=== PATIENT | male | born 1985 | race African-American/Black ===

== ENCOUNTER 2022-02-13 11:17 | Emergency (ER) | payer OTHER ==
--- OUTSIDE RECORDS SUMMARY | 2022-02-13 11:24 | XMS REPORT | Continuity of Care Document ---
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 times Branch daily. HYDROcodone 2018-0 Yes [id number] 1{tbl} Take 1 Univers -acetaminop 8-09 tablet by ity of hen (Briefcase) 00:00: mouth 2 [place] 5-325 mg 00 (two) Medical tablet times Branch daily. HYDROcodone 2018-0 Yes [id number] 1{tbl} Take 1 Univers -acetaminop 8-09 tablet by ity of hen (Briefcase) 00:00: mouth 2 [place] 5-325 mg 00 (two) Medical tablet times Branch daily. HYDROcodone 2018-0 Yes [id number] 1{tbl} Take 1 Univers -acetaminop 8-09 tablet by ity of hen (Briefcase) 00:00: mouth 2 [place] 5-325 mg 00 (two) Medical tablet times Branch daily. HYDROcodone 2018-0 Yes [id number] 1{tbl} Take 1 Univers -acetaminop 8-09 tablet by ity of hen (Briefcase) 00:00: mouth 2 [place] 5-325 mg 00 (two) Medical tablet times Branch daily. HYDROcodone 2020- No [id number] 1{tbl} Take 1 Univers -acetaminop 02-19 tablet by it y of hen ([place]) 00:00: 00:00 mouth 2 [place] 5-325 mg 00 :00 (two) Medical tablet times Branch daily. naproxen Yes [id number] 375mg Take 1 Un nannette 375 mg 3-01 tablet by ity of tablet 00:00: mouth 2 (two) Medical times Branch daily with meals. naproxen Yes [id number] 375mg Take 1 Un [place] 375 mg 3-01 tablet by ity of tablet 00:00: mouth 2 (two) Medical times Branch daily with meals. naproxen Yes [id number] 375mg Take 1 Un [place] 375 mg 3-01 tablet by ity of tablet 00:00: mouth 2 (two) Medical times Branch daily with meals. naproxen Yes [id number] 375mg Take 1 Un [place] 375 mg 3-01 tablet by ity of tablet 00:00: mouth (two) Medical times Branch daily with meals. naproxen Yes [id number] 375mg Take 1 Un [place] 375 mg 3-01 tablet by ity of tablet 00:00: mouth (two) Medical times Branch daily with meals. naproxen Yes [id number] 375mg Take 1 Un [place] 375 mg 3-01 tablet by ity of tablet 00:00: mouth 2 (two) Medical times Branch daily with meals. naproxen Yes [id number] 375mg Take 1 Un [place] 375 mg 3-01 tablet by ity of tablet 00:00: mouth 2 (two) Medical times Branch daily with meals. naproxen Yes [id number] 375mg Take 1 Un [place] 375 mg 3-01 tablet by ity of tablet 00:00: mouth 2 (two) Medical times Branch daily with meals. naproxen Yes [id number] 375mg Take 1 Un [place] 375 mg 3-01 tablet by ity of tablet 00:00: mouth 2 (two) Medical times Branch daily with meals. naproxen Yes [id number] 375mg Take 1 Univers 375 mg 3- tablet by ity of tablet 00:00: mouth 2 [place] 00 (two) Medical times Branch daily with meals. naproxen 1- No [id number] 375mg Take 1 Univers 375 mg 304-11 tablet by ity of tablet 00:00: 00:00 mouth 2 [place] 00 :00 (two) Medical times Branch daily with meals. Immunizations Ordered Filled Immunization Date Status Comments [facility] e Immunization Name Name Influenza, 2017-04-29 [facility] injectable, 00:00:00 quadrivalent Influenza, 2017-04-29 Completed [facility] Unspecified 00:00:00 Influenza, 2017-04-29 Completed [facility] injectable, 00:00:00 quadrivalent Influenza, 2017-04-29 Completed [facility] Unspecified 00:00:00 Influenza, 2017-04-29 Completed [facility] injectable, 00:00:00 quadrivalent Influenza, 2017-04-29 Completed [facility] Unspecified 00:00:00 Influenza, 2017-04-29 Completed [facility] injectable, 00:00:00 quadrivalent Influenza, 2017-04-29 Completed [facility] Unspecified 00:00:00 Influenza, 2017-04-29 Completed [facility] injectable, 00:00:00 quadrivalent Influenza, 2017-04-29 Completed [facility] Unspecified 00:00:00 Influenza, 2017-04-29 Completed [facility] injectable, 00:00:00 quadrivalent Influenza, 2017-04-29 Completed [facility] Unspecified 00:00:00 Influenza, 2017-04-29 Completed [facility] injectable, 00:00:00 quadrivalent Influenza, 2017-04-29 Completed [facility] Unspecified 00:00:00 Influenza, 2017-04-29 Completed [facility] injectable, 00:00:00 quadrivalent Influenza, 2017-04-29 Completed [facility] Unspecified 00:00:00 Influenza, 2017-04-29 Completed [facility] injectable, 00:00:00 quadrivalent Influenza, 2017-04-29 Completed [facility] Unspecified 00:00:00 Influenza, 2017-04-29 Completed [facility] injectable, 00:00:00 quadrivalent Influenza, 2017-04-29 Completed [facility] Unspecified 00:00:00 Influenza Virus 2017-04-29 Completed Universit y of Vaccine 00:00:00 [facility] Influenza Virus 2017-04-29 Completed Universit y of Vaccine 00:00:00 [facility] Influenza Virus 2017-04-29 Completed Universit y of Vaccine 00:00:00 [facility] Influenza Virus 2017-04-29 Completed Universit y of Vaccine 00:00:00 [facility] Influenza Virus 2017-04-29 Completed Universit y of Vaccine 00:00:00 [facility] Influenza Virus 2017-04-29 Completed Universit y of Vaccine 00:00:00 [facility] Influenza Virus 2017-04-29 Completed Universit y of Vaccine 00:00:00 [facility] Influenza Virus 2017-04-29 Completed Universit y of Vaccine 00:00:00 [facility] Influenza Virus 2017-04-29 Completed Universit y of Vaccine 00:00:00 [facility] Influenza Virus 2017-04-29 Completed Universit y of Vaccine 00:00:00 [facility] Influenza Virus 2017-04-29 Completed Universit y of Vaccine 00:00:00 [facility] Influenza Virus 2017-04-29 Completed Universit y of Vaccine 00:00:00 [facility] Influenza Virus 2017-04-29 Completed Universit y of Vaccine 00:00:00 [facility] Influenza Virus 2017-04-29 Completed Universit y of Vaccine 00:00:00 [facility] Influenza Virus 2017-04-29 Completed Universit y of Vaccine 00:00:00 [facility] Vital Signs Vital Name Observation Time Observation Value Comments Source Systolic blood 2021-07-25 10:41:00 138 mm[Hg] Univer sity of pressure [facility] Diastolic blood 2021-07-25 10:41:00 91 mm[Hg] Unive rsity of pressure [facility] Heart rate 2021-07-25 10:41:00 91 /min [facility] Respiratory rate 2021-07-25 10:41:00 18 /min [facility] [place] [facility] Oxygen saturation in 2021-07-25 10:41:00 100 /min [facility] Arterial blood by [facility] Pulse oximetry Branch Body temperature 2021-07-25 08:37:00 36.78 Cyndi [facility] Body height 2021-07-25 08:37:00 177.8 cm [facility] Body weight 2021-07-25 08:37:00 61.236 kg [facility] BMI 2021-07-25 08:37:00 19.37 kg/m2 [facility] [place] [facility] Systolic blood 2021-04-23 10:30:00 151 mm[Hg] [facility] [place] [facility] Diastolic blood 2021-04-23 10:30:00 108 mm[Hg] Unive rsity [facility] Heart rate 2021-04-23 10:30:00 91 /min [facility] [place] [facility] Respiratory rate 2021-04-23 10:30:00 18 /min [facility] ers[facility] [place] [facility] Oxygen saturation in 2021-04-23 10:30:00 98 /min [facility] of Arterial blood by [place] [facility] Pulse oximetry Branch Body temperature 2021-04-23 08:58:00 36.78 Cyndi [facility] [place] [facility] Body height 2021-04-23 08:58:00 177.8 cm [facility] [place] [facility] Body weight 2021-04-23 08:58:00 56.7 kg [facility] [place] [facility] BMI 2021-04-23 08:58:00 17.94 kg/m2 [facility] [place] [facility] Systolic blood 2021-04-18 07:06:00 132 mm[Hg] [facility] Diastolic blood 2021-04-18 07:06:00 97 mm[Hg] Unive rsity of [facility] Heart rate 2021-04-18 07:06:00 91 /min [facility] [place] [facility] Respiratory rate 2021-04-18 07:06:00 20 /min [facility] [place] [facility] Oxygen saturation in 2021-04-18 07:06:00 99 /min University of Arterial blood by [employer] lelia Pulse oximetry Branch Body temperature 2021-04-18 04:40:00 36.72 Cyndi [facility] [place] [facility] Body weight 2021-04-18 04:40:00 56.7 kg [facility] [place] [facility] BMI 2021-04-18 04:40:00 17.94 kg/m2 [facility] [place] [facility] Systolic blood 2021-04-12 04:16:00 129 mm[Hg] [facility] Diastolic blood 2021-04-12 04:16:00 89 mm[Hg] Unive rsity of [facility] Heart rate 2021-04-12 04:16:00 98 /min [facility] [place] [facility] Body temperature 2021-04-12 04:16:00 36.61 Cyndi [facility] [place] [facility] Respiratory rate 2021-04-12 04:16:00 18 /min [facility] [place] [facility] Oxygen saturation in 2021-04-12 04:16:00 100 /min [facility] of Arterial blood by [place] [facility] Pulse oximetry Branch Body height 2021-04-12 01:11:00 177.8 cm [facility] [place] [facility] Body weight 2021-04-12 01:11:00 56.7 kg [facility] [place] [facility] BMI 2021-04-12 01:11:00 17.94 kg/m2 [facility] [place] [facility] Systolic blood 2021-04-11 23:34:00 139 mm[Hg] [facility] Diastolic blood 2021-04-11 23:34:00 90 mm[Hg] Unive rsity [facility] Heart rate 2021-04-11 23:34:00 114 /min [facility] [place] [facility] Body temperature 2021-04-11 23:34:00 37.22 Cyndi [facility] [place] [facility] Respiratory rate 2021-04-11 23:34:00 16 /min [facility] [place] [facility] Body weight 2021-04-11 23:34:00 56.79 kg [facility] [place] [facility] BMI 2021-04-11 23:34:00 17.96 kg/m2 [facility] [place] [facility] Oxygen saturation in 2021-04-11 23:34:00 100 /min University of Arterial blood by [facility] lelia Pulse oximetry Branch Systolic blood 2021-03-29 20:00:00 120 mm[Hg] [facility] Diastolic blood 2021-03-29 20:00:00 79 mm[Hg] [facility] Heart rate 2021-03-29 20:00:00 101 /[facility] Body height 2021-03-29 20:00:00 177.8 cm [facility] Systolic blood 2021-03-29 20:00:00 120 mm[Hg] [facility] Diastolic blood 2021-03-29 20:00:00 79 mm[Hg] [facility] Heart rate 2021-03-29 20:00:00 101 /min [facility] height 2021-03-29 20:00:00 177.8 cm [facility] Systolic blood 2021-02-26 14:09:00 138 mm[Hg] [facility] Diastolic blood 2021-02-26 14:09:00 85 mm[Hg] [facility] Heart rate 2021-02-26 14:09:00 94 /min [facility] Body temperature 2021-02-26 14:09:00 37.22 Cyndi [facility] Body height 2021-02-26 14:09:00 177.8 [facility] Body weight 2021-02-26 14:09:00 62[facility]596 [facility] BMI 2021-02-26 14:09:00 19.80 kg[facility]m2 [facility] Systolic blood 2021-01-23 13:17:00 123 mm[Hg] [facility] Diastolic blood 2021-01-23 13:17:00 70 mm[Hg] [facility] Heart rate 2021-01-23 13:17:00 73 /min [facility] Body weight 2021-01-23 13:17:00 65.772 [facility] BMI 2021-01-23 13:17:00 20.81 kg[facility]m2 [facility] Systolic blood 2020-12-25 14:17:00 130 mm[Hg] [facility] Diastolic blood 2020-12-25 14:17:00 67 mm[Hg] [facility] Heart rate 2020-12-25 14:17:00 73 /min [facility] Body temperature 2020-12-25 14:17:00 36.72 Cyndi [facility] Body weight 2020-12-25 14:17:00 63.504 [facility] BMI 2020-12-25 14:17:00 20.09 kg[facility]m2 [facility] Systolic blood 2020-11-21 14:34:00 112 mm[Hg] [facility] Diastolic blood 2020-11-21 14:34:00 76 mm[Hg] [facility] Heart rate 2020-11-21 14:34:00 71 /min [facility] Body temperature 2020-11-21 14:34:00 37.17 Cyndi [facility] Body height 2020-11-21 14:34:00 177.8 cm [facility] Body weight 2020-11-21 14:34:00 63.957 [facility] BMI 2020-11-21 14:34:00 20.23 kg[facility]m2 [facility] Systolic blood 2020-07-24 15:05:00 130 mm[Hg] [facility] Diastolic blood 2020-07-24 15:05:00 68 mm[Hg] [facility] [place] [facility] [place] Heart rate 2020-07-24 15:04:00 71 /min [facility] [place] [facility] Respiratory rate 2020-07-24 15:04:00 16 /min [facility] [place] [facility] Body height 2020-07-24 15:04:00 177.8 cm [facility] [place] [facility] Body weight 2020-07-24 15:04:00 66.86 kg [facility] [place] [facility] BMI 2020-07-24 15:04:00 21.15 kg/m2 [facility] [place] [facility] Oxygen saturation in 2020-07-24 15:04:00 100 /min University of Arterial blood by [employer] Pulse oximetry Branch Systolic blood 2020-07-24 15:05:00 130 mm[Hg] [facility] Diastolic blood 2020-07-24 15:05:00 68 mm[Hg] [facility] Heart rate 2020-07-24 15:04:00 71 /min [facility] [place] [facility] Respiratory rate 2020-07-24 15:04:00 16 /min [facility] [place] [facility] Body height 2020-07-24 15:04:00 177.8 cm [facility] [place] [facility] Body weight 2020-07-24 15:04:00 66.86 kg [facility] [place] [facility] BMI 2020-07-24 15:04:00 21.15 kg/m2 [facility] [place] [facility] Oxygen saturation in 2020-07-24 15:04:00 100 /min [facility]ial blood by [place] [facility] Pulse oximetry Branch Oxygen saturation by 2021-04-30 02:41:00 100 /min [facility] P[facility] Oxygen saturation by 2021-04-30 02:36:00 100 /min [facility] Pulse [facility] Procedures Procedure Date / Time Performed Performing Clinician Sourc e CT ABDOMEN PELVIS W 2021-07-25 09:31:55 Jamila [facility] CONTRAST Medical Branch URINALYSIS 2021-07-25 09:19:00 [facility] [place] [facility] (ID NOW RAPID 2021-07-25 09:15:00 [facility] LIPASE 2021-07-25 09:08:00 [facility] [place] [facility] COMP. METABOLIC PANEL 2021-07-25 09:08:00 [facility] ([id number]) Medical Branch CBC WITH DIFF 2021-07-25 09:08:00 [facility] [place] [facility] CONSENT/REFUSAL FOR 2021-07-25 08:33:52 Doctor Unassigned, No [facility] [place] DIAGNOSIS AND Name Medical Branch TREATMENT CONSENT/REFUSAL FOR 2021-04-23 08:55:28 Doctor Unassigned, No [facility] [place] DIAGNOSIS AND Name Medical [place] TREATMENT URINALYSIS 2021-04-18 06:07:00 [facility] [place] [facility] CONSENT/REFUSAL FOR 2021-04-18 04:37:28 Doctor Unassigned, No [facility] [place] DIAGNOSIS AND Name [facility] [place] TREATMENT CT ABDOMEN PELVIS WO 2021-04-12 03:25:02 Marianne Pineda [facility] CONTRAST Medical Branch US TESTICULAR TORSION 2021-04-12 02:06:29 Marianne Pineda [facility] URINALYSIS 2021-04-12 01:56:00 Marianne Pineda [facility] CONSENT/REFUSAL FOR 2021-04-12 00:39:32 Doctor Unassigned, No [facility] [place] DIAGNOSIS AND Name [facility] TREATMENT POCT URINALYSIS 2021-04-12 00:06:00 Jose Caro Univer sity [facility] [place] [facility] POCT URINE DRUG SCREEN 2021-02-26 16:21:00 Siria Gonsales [place] [facility] EXTERNAL PROVIDER 2020-07-11 06:01:00 Doctor Unassigned, No [facility] [place] RECORDS Name Medical Branch REFERRAL- 2020-06-26 06:01:00 Doctor Unassigned, No [facility] [place] REQUEST/RESPONSE Name Medical Branch REFERRAL- 2019-08-11 06:01:00 Doctor Unassigned, No [facility] [place] REQUEST/RESPONSE Name [facility] Plan of Care Planned Activity Planned Date Details Comments Source Instructions Inguinal Hernia, Adult, [facility] Patient [id number] [facility] Encounters Start End Encounter Admission Attending Care Care Encounter Source Date/Time Date/Time Type Type Clinicians Facility Department ID 2021-11-08 Outpatient [facility] [id number] [place] 15:36:38 [id number] Health 2021-05-[address] [facility] [id number] Univers 05:37:30 ity [facility] [place] [facility] 2021-05-[address] [facility] [id number] Univers 04:18:48 ity of [facility] 2021-05-[address] [facility] [id number] [facility] 02[facility] 2021-[facility]-05 Inpatient [facility] [id number] [facility] 21:06:00 [id number] [facility] 2021-05-04 Inpatient [facility] AERS [id number] [facility] 01:12:00 [id number] [facility] 2021-04-30 Inpatient [facility] [id number] [facility] 02:30:00 -[id number] [place] [facility] 2019-12-19 Inpatient [facility] [id number] [facility] 13:39:00 [id number] [facility]3] 2019-12-18 Inpatient [facility] [id number] [facility] 21:12:00 [id number] [facility]3] 2019-07-31 Inpatient [facility] [id number] [facility] 10:09:00 [id number] [facility]3] 2021-09-08 2021-09-09 Emergency MARTIN Rose [facility] [id number] [facility] 22:42:00 02:32:00 Mya Antonio [facility] 2021-09-02 2021-09-02 Emergency MAI, [facility] [id number] [place] 00:00:00 00:00:00 JOHN [address] 2021-07-25 2021-07-25 Emergency X JAMILA, [facility] [[email or web address]] ERT [id number] Univers 02:41:00 05:23:00 [facility] 2021-07-25 2021-07-25 Emergency [facility] 1.2.840.114 [id number] Univers 02:41:00 05:23:00 [facility] [id number] it [facility] [id number] [facility] [id number] [address] ([facility]) 2021-07-10 2021-07-10 Emergency EM Radwan, [facility] [id number] [facility] 03:43:00 05:45:00 Lizabeth [facility] 2021-05-30 2021-05-30 Outpatient Pacheco, [facility]O [id number] [facility] 00:37:00 00:37:00 Nuvia 11359 [facility] 2021-05-29 2021-05-29 Emergency EM Pacheco, [facility] [id number] [facility] 18:46:00 23:31:00 Nuvia 09 [facility] 2021-05-06 2021-05-06 Inpatient EM Pacheco, [facility] [id number] [facility] 03:29:00 06:00:00 Nuvia 97 [facility] 2021-05-05 2021-05-06 Emergency EM Dark, Ingrid [facility] [id number] [facility] 21:06:00 02:55:00 81 [facility] 2021-05-04 2021-05-04 Emergency EM Omikalaaku, [facility] AERS [id number] [facility] 01:12:00 01:43:00 Bozena 26 [facility] 2021-04-30 2021-04-30 Departed [facility] A[id number] [facility] 02:43:00 04:30:00 Emergency JONATHAN Patients 42 Saul [facility] 2021-04-23 2021-04-23 Emergency Blessingstella, [facility] [[email or web address]] 1.2.840.114 [id number] Univers 03:54:00 06:51:00 [facility] [id number] it y of [place] [id number] [facility] [id number] [address] ([facility]) 2021-04-22 2021-04-23 Inpatient EM Tapan [facility] [id number] [facility] 23:41:00 02:07:00 Lizabeth 53 [facility] 2021-04-17 2021-04-18 Emergency [facility] 1.2.840.114 [id number] Univers 23:41:00 02:14:00 [facility] [id number] it y of [place] [id number] [facility] [id number] [address] ([facility]) 2021-04-12 2021-04-12 Inpatient EM Jason [facility] [id number] [facility] 02:45:00 05:37:00 Scott 10 [facility] 2021-04-12 2021-04-12 Letter CHERELLE Mckeon 1.2.840.114 [id number] Univers 00:00:00 00:00:00 (Out) Jacki CHERRY [id number] i ty of HOSPITAL [id number] Steve [id number] [address] 2021-04-11 2021-04-11 Emergency [facility] [id number] Univers 20:13:00 23:19:00 Marianne [facility] [id number] i ty of [facility] 4.2.7.2.686 [facility] [id number] [address] ([facility]) 2021-04-11 2021-04-[address] [facility] [id number] Univers 18:30:00 18:30:00 [id number] ity of [facility] 2021-04-11 2021-04-11 Outpatient R UNKNOWN, [facility] [id number] Univers 18:30:00 18:30:00 ATTENDING ity of [facility] 2021-04-11 2021-04-11 Urgent Jose Caro [facility] [[email or web address]] 1.2. 840.114 [id number] Univers 18:13:52 18:28:52 Care Unknown, Attending HEALTH [id number] ity [facility] [id number] [facility] [id number] [facility] Primary [facility] Branch Specialty Care 2021-03-29 2021-03-29 Office Siria Gonsales [facility] 1.2.840.114 [id number] 14:26:30 15:12:24 Visit [place] [id number] MULTI [id number] SPECIALTY [id number] CLINIC 9 2021-03-29 2021-03-29 Office Ryanne Gonsalesa [facility] 1.2.840.114 [id number] [place] 14:26:30 15:12:24 Visit [place] [id number] H ealth MULTI 9.2.7.2.686 SPECIALTY [id number] CLINIC 9 2021-02-26 2021-02-26 Office Siria Gonsales [facility] 1.2.840.114 [id number] [place] 09:01:45 10:03:47 Visit [place] [id number] H ealth MULTI 9.2.7.2.686 SPECIALTY [id number] CLINIC 9 2021-01-31 2021-01-31 Emergency EM Lundy, [facility] [id number] [facility] 08:07:00 09:00:[address] [place] [address] 2021-01-23 2021-01-23 Office Siria Gonsales [facility] 1.2.840.114 [id number] [place] 08:09:59 08:25:49 Visit [place] [id number] H ealth MULTI [id number] SPECIALTY [id number] CLINIC 9 2020-12-25 2020-12-25 Office Ryanne Gonsalesa [facility] 1.2.840.114 [id number] [place] 08:58:15 09:55:14 Visit [id number] [facility] [id number] SPECIALTY [id number] CLINIC 9 2020-11-21 2020-11-21 Office Siria Gonsales [facility] 1.2.840.114 [id number] [place] 09:28:29 10:24:33 Visit [facility] [id number] [facility] [id number] SPECIALTY [id number] CLINIC 9 2020-11-21 2020-11-21 Telephone ParkerpaulMagdiel [facility] [place] 1.2.84 0.114 [id number] [place] 00:00:00 00:00:00 Parkerpaul[address]d[facility] [place] [id number] Health MEDICAL [id number] CENTER [id number] 2020-11-21 2020-11-21 Refill Griselda Jimenez [facility] 1.2.840.11 [id number] [place] 00:00:00 00:00:00 Griselda Jimenez [facility] [id number] Health MULTI [id number] SPECIALTY [id number] CLINIC 9 2020-07-24 2020-07-24 Office [facility] 1.2.840.114 [id number] [facility] 08:40:26 09:10:26 Visit Jonathan [facility].1.13.10 [facility] [id number] [facility] [id number] [facility] AND DIVINA [address] [place] [address] DIABETES CLINIC 2020-07-24 2020-07-24 Office [facility] 1.2.840.114 [id number] 08:40:26 09:10:26 Visit Jonathan FAYEPEC [id number] IALTY 4.2.7.2.686 [place] [id number] AND DIVINA [facility] DIABETES CLINIC 2020-07-24 2020-07-24 [facility] [id number] Univers 09:00:00 09:00:00 JONATHAN [id number] ity of [facility] 2020-07-24 2020-07-24 [facility] [id number] [facility] 09:00:00 09:00:00 JONATHAN ity of [facility] 2020-07-11 2020-07-11 Orders Doctor CHERELLE 1.2.840.114 [id number] Univers 00:00:00 00:00:00 Only Unassigned, DILIP 350.1.13.10 ity of [employer] [facility] 4.2.7.2.686 Steve as [phone] [facility] [address] [place] 2020-06-26 2020-06-26 Orders Doctor CHERELLE 1.2.840.114 [id number] Univers 00:00:00 00:00:00 Only Unassigned, DILIP 350.1.13.10 ity of [employer] [facility] 4.2.7.2.686 Steve as [phone] [address] 2019-12-22 2019-12-24 Inpatient HCAMN PAULINO [id number] [facility] 23:34:00 10:39:39 42 [facility] 2019-12-19 2019-12-19 Outpatient CRISS Ballard [id number] [facility] 06:59:00 06:59:00 Jerrica [address] [facility] 2019-10-04 2019-10-04 Outpatient JORGE BURKS [facility] 750 1 09:04:00 09:04:00 [facility] 2019-09-24 2019-09-24 CHERELLE Dumont2.840.114 [id number] 21 Univers 00:00:00 00:00:00 (Out) Sandra CHERRY 350.1.13.10 it y of HOSPITAL 4.2.7.2.686 Steve as [phone] [address] 2019-08-11 2019-08-11 Orders Doctor CHERELLE 1.2.840.114 [id number] Univers 00:00:00 00:00:00 Only Unassigned, DILIP 350.1.13.10 ity of [employer] [facility] 4.2.7.2.686 Steve as [phone] [address] 2019-07-31 2019-08-03 Inpatient HCAMN PAULINO [id number] [facility] 08:36:00 04:32:15 53 [facility] Results Test Description Test Time Test Comments Results Result Comments Source DRUGS OF ABUSE SCREEN UR 2021-09-08 15:13:00 Test Item Value Reference Range Interpretation Comme nts URN COCAINE (test code = NEGATIVE NEGATIVE Renae jayshree cut-off concentration: 300 COCAURN) ng/mL URN CANNABINOIDS (test code = NEGATIVE NEGATIVE Cannabinoids cut-off concentration: CANNABURN) 50 ng/mL URN AMPHETAMINE (test code = POSITIVE NEGATIVE A UNCONFIRMED INITIAL SCREENING ONLY; AMPHETURN) SUGGEST ADDITIO NALCONFIRMATORY TESTING.Ampheta mine cut-off concentration: 1000 ng/mL URN BARBITURATE (test code = NEGATIVE NEGATIVE Barbiturate cut-off concentration: BARBITURN) 200 ng/mL URN BENZODIAZEPINE (test code POSITIVE NEGATIVE A UNCONFIRMED INITIAL SCREENING ONLY; = BENZOURN) SUGGEST ADDITIO NALCONFIRMATORY TESTING.Benzodi azepine cut-off concentration: 200 ng/mL URN OPIATES (test code = NEGATIVE NEGATIVE Opi ates cut-off concentration: 2000 OPIATURN) ng/mL URN PHENCYCLIDINE (PCP) (test NEGATIVE NEGATIVE Phencyclidine(PCP) cut-off code = PHENCURN) concentrati on: 25 ng/ml URN METHADONE (test code = NEGATIVE NEGATIVE M ethadone cut-off concentration: 300 METHAURN) ng/mL COMP. METABOLIC PANEL (53594)2021-07-25 10:08:20 Test Item Value Reference Range Interpretation Comments NA (test code = 138 mmol/L 135-145 4012244836) K (test code = 4.2 mmol/L 3.5-5.0 3938698519) CL (test code = 104 mmol/L 98-108 1570366373) CO2 TOTAL (test code 30 mmol/L 23-31 = 7053592385) AGAP (test code = 2-16 9381541516) BUN (test code = 14 mg/dL 7-23 2153436941) GLUCOSE (test code = 93 mg/dL 70-110 3798277118) CREATININE (test code 1.01 mg/dL 0.60-1.25 = 0390645569) TOTAL BILI (test code 0.2 mg/dL 0.1-1.1 = 5933836054) CALCIUM (test code = 8.6 mg/dL 8.6-10.6 8055220764) T PROTEIN (test code 6.6 g/dL 6.3-8.2 = 1764014780) ALBUMIN (test code = 3.9 g/dL 3.5-5.0 3484516051) ALK PHOS (test code = 42 U/L 34-122 2809562473) ALTv (test code = 13 U/L 5-50 1742-6) AST(SGOT) (test code 20 U/L 13-40 = 4965441531) eGFR (test code = mL/min/1.73m2 1130775313) RONY (test code = RONY) Association of Glomerular Filtration Rate (GFR) and Staging of Kidney Disease* + + +- +| GFR (mL/min/1.73 m2) ?| With Kidney Damage ?| ?Without Kidney Damage+ ------+ ----+ ------+| ?>90 ?| ?Stage one ?| ? Normal ?+ -+ + -+| ?60-89 ?| ?Stage two ?| ? Decreased GFR ? + + +- +| ?30-59 ?| ?Stage three ?| ? Stage three ? + + +- +| ?15-29 ?| ?Stage four ? | ? Stage four ?+ -+ + -+| ?<15 (or dialysis) ? ?| ?Stage five ? | ? Stage five ?+ -+ + -+ *Each stage assumes the associated GFR level has been in effect for at least three months. ?Stages 1 to 5, with or without kidney disease, indicate chronic kidney disease. Notes: Determination of stages one and two (with eGFR >59mL/min/1.73 m2) requires estimation of kidney damage for at least three months as defined by structural or functional abnormalities of the kidney, manifested by either:Pathological abnormalities or Markers of kidney damage (including abnormalities in the composition of the blood or urine or abnormalities in imaging tests). [facility] Resources[facility]IPASE2022-01-12 10:08:20 Test Item Value Reference Range Interpretation Comments LIPASE (test code = 8591352830) 190 U/L 0-220 Lab Interpretation (test code = Normal 46308-7) [facility] WITH [id number] 09:44:05 Test Item Value Reference Range Interpretation Comments WBC (test code = See_Comment [Automated 6690-2) message] The sy stem which generated this result transmitted reference range : 4.20 - 10.70 10*3/?L. The reference range was not used to interpret this result as normal/abnormal . RBC (test code = See_Comment L [Automated 789-8) message] The sy stem which generated this result transmitted reference range : 4.26 - 5.52 10*6/?L. The reference range was not used to interpret this result as normal/abnormal . HGB (test code = 12.6 g/dL 12.2-16.4 718-7) HCT (test code = 38.7 % 38.4-49.3 4544-3) MCV (test code = 91.1 fL 81.7-95.6 787-2) MCH (test code = 29.6 pg 26.1-32.7 785-6) MCHC (test code = 32.6 g/dL 31.2-35.0 786-4) RDW-SD (test code = 41.5 fL 38.5-51.6 56743-0) RDW-CV (test code = 12.6 % 12.1-15.4 788-0) PLT (test code = See_Comment [Automated 777-3) message] The sy stem which generated this result transmitted reference range : 150 - 328 10*3/ ?L. The reference r leta was not used to interpret this result as normal/abnormal . MPV (test code = 9.2 fL 9.8-13.0 L 11496-8) NRBC/100 WBC (test See_Comment [Automat ed code = 6740541590) message] The system which generated this result transmitted reference range : 0.0 - 10.0 /100 WBCs. The refer ence range was not u sed to interpret th is result as normal/abnormal . NRBC x10^3 (test code <0.01 See_Comment [Auto mated = 7779340622) message] The s ystem which generated this result transmitted reference range : 10*3/?L. The reference range was not used to interpret this result as normal/abnormal . GRAN MAT (NEUT) % 64.4 % (test code = 770-8) IMM GRAN % (test code 0.20 % = 4902764112) LYMPH % (test code = 27.6 % 736-9) MONO % (test code = 6.6 % 5905-5) EOS % (test code = 0.9 % 713-8) BASO % (test code = 0.3 % 706-2) GRAN MAT x10^3(ANC) 4.19 10*3/uL 1.99-6.95 (test code = 6674239903) IMM GRAN x10^3 (test <0.03 0.00-0.06 code = 3588831655) LYMPH x10^3 (test code 1.80 10*3/uL 1.09-3.23 = 731-0) MONO x10^3 (test code 0.43 10*3/uL 0.36-1.02 = 742-7) EOS x10^3 (test code = 0.06 10*3/uL 0.06-0.53 711-2) BASO x10^3 (test code <0.03 0.01-0.09 = 704-7) Lab Interpretation Abnormal (test code = 94384-3) [facility] ResourcesURINALYSIS [id number] 05:21:00 Test Item Value Reference Range Interpretation Comments UA COLOR (test code = COLU) YELLOW UA APPEARANCE (test code = CLEAR APPU) UA GLUCOSE DIPSTICK (test NORMAL mg/dl NORMAL code = DGLUU) UA BILIRUBIN DIPSTICK (test NEGATIVE mg/dL NEGATIVE code = BILU) UA KETONE DIPSTICK (test NEGATIVE mg/dl NEGATIVE code = KETU) UA SPECIFIC GRAVITY (test 1.010 1.000-1.030 code = SGU) UA BLOOD DIPSTICK (test NEGATIVE Robbie/micL NEGATIVE code = APARNA) UA PH DIPSTICK (test code = 7.0 5.0-9.0 JAKCY) UA PROTEIN DIPSTICK (test NEGATIVE mg/dl NEGATIVE code = PROU) UA UROBILINIOGEN DIPSTICK NORMAL mg/dl NORMAL (test code = URO) UA NITRITE DIPSTICK (test NEGATIVE NEGATIVE code = RM) UA LEUKOCYTE ESTERASE NEGATIVE Veronica/micL NEGATIVE DIPSTICK (test code = LEUU) UA WBC (test code = WBCU) 0-3 WBC/HPF NONE UA RBC (test code = RBCU) 0-2 RBC/HPF 0-3 UA EPITHELIAL CELLS (test 0-3 EPI/HPF 0-3 code = EPIU) UA BACTERIA (test code = FEW NONE BACU) - XR SHOULDER 2 + V [id number] 04:46:00 [facility] VA[facility] L[place]NNETTE : 1985 Sex: MFAX: Maryann Geiger [phone] [place]: St: REG FAX: Lizabeth Phelan MD [phone] ----- [facility] 1985 Age[facility]S: 36/M [address] [facility] [place] Unit #: [id number] Loc: [address] Phys: [place] [address] Acct: [id number] Dis Date: Status: REG ER PHONE #: [phone] Exam Date: 07/10/2021444 FAX #: [phone] Reason: right shoulder pain EXAMS: CPT CODE: [id number] XR SHOULDER 2 + V RT [address]46 EXAMINATION: - XR SHOULDER 2 + V RT LOCATION: H61 HISTORY/INDICATION: right shoulder pain COMPARISON: None. FINDINGS: AP and scapular Y view of the right shoulder are submitted. The AC joint and glenohumeral joint are normal. There is no acute fracture or dislo cation. Soft tissues are unremarkable. Thoracic fusion hardware is partially visualized. Chronic right posterior 10th rib fracture. IMPRESSION: No acute osseous abnormality demonstrated in the right shoulder. at 0446 Reported and signed by: Berta Carmen CC: Maryann Adams MD; Lizabeth Phelan MD Technologist: EMILIANO MO Trnscrd Date/Time/By: 07/10/2021 (0446) : By: OrvilleTH15 PAGE 1 Signed Report FAX: Maryann Geiger [phone] [place]: St: REG FAX: Lizabeth Phelan MD [phone] Name: CADEN VAZQUEZ [facility] : 1985 Age/S:36/M [address] [facility] Unit #: [id number] Loc: [address] Phys: [place] [address] Acct: [id number] Dis Date: Status: REG ER PHONE #: [phone] Exam Date: FAX #: [phone] Reason: right shoulder pain EXAMS: CPT CODE: [id number] XR SHOULDER 2 + V RT [address]20 <Continued> Orig Print D/T: S: 07/10/2021 (0449) PAGE 2 Signed ReportCOVID 19 Asymptomatic IH [id number] 20:36:00 Test Item Value Reference Range Interpretation Comments COVID 19 NEGATIVE NEGATIVE Negative result s should be Asymptomatic IH AG treated a s presumptive and (test code = ifinconsistent with COVNONPUIAG) clinical signs and symptoms, or ne cessaryfor patient managem ent, should be tested with an alternativemole cular assay. Negative results do not preclude AJVQ-LrM-6ljkpr tion and should not be u sed as the sole basis forp atient management deci sions. Negative result s should beconsidered in the context of a pa tient's recent exposure s,history, presence of cli nical signs and symptoms consistentwith COVID-19. COMPREHENSIVE METABOLIC [id number] 04:37:00 Test Item Value Reference Range Interpretation Comments SODIUM (test code = NA) 140 mmol/l 134.0-147.0 N POTASSIUM (test code = K) 3.5 mmol/L 3.6-5.2 L CHLORIDE (test code = CL) 105 mmol/l 98.0-107.0 N CARBON DIOXIDE (test code = CO2) 32.1 mmol/l 21.0-33.0 N ANION GAP (test code = GAP) 6.4 0-20 N GLUCOSE (test code = GLU) 101 mg/dl 70.0-110.0 N BLOOD UREA NITROGEN (test code = 13 mg/dl 7.0-18.0 N BUN) CREATININE (test code = CREAT) 1.21 mg/dL 0.60-1.30 N GFR NON BLACK (test code = 72 mL/min 105-110 L GFRNONBLACK) GFR BLACK (test code = GFRBLACK) 87 mL/min 127-133 L TOTAL PROTEIN (test code = PROT) 7.2 GM/DL 6.0-8.1 N ALBUMIN (test code = ALB) 3.8 gm/dL 3.2-4.7 N CALCIUM (test code = CA) 8.0 mg/dl 8.0-10.5 N BILIRUBIN TOTAL (test code = 0.3 mg/dl 0.0-1.0 N BILT) SGOT/AST (test code = AST) 18 Units/L 15-37 N SGPT/ALT (test code = ALT) 25 Units/L 12.0-78.0 N ALKALINE PHOSPHATASE TOTAL (test 43 Units/L 50.0-136.0 L code = ALKP) CBC W/AUTO [id number] 04:20:00 Test Item Value Reference Range Interpretation Comments WHITE BLOOD CELL (test code = 6.4 K/mm3 4.5-11.0 N WBC) RED BLOOD CELL (test code = 4.56 M/mm3 4.40-5.90 N RBC) HEMOGLOBIN (test code = HGB) 13.4 gm/dL 13.0-17.0 N HEMATOCRIT (test code = HCT) 41.3 % 36.0-48.0 N MEAN CELL VOLUME (test code = 90.6 UM3 80.0-94.0 N MCV) MEAN CELL HGB (test code = MCH) 29.4 UUG 25.5-32.5 N MEAN CELL HGB CONCETRATION 32.4 gm/dL 29.0-35.5 N (test code = MCHC) RED CELL DISTRIBUTION WIDTH 12.8 % 11.5-15.0 N (test code = RDW) RED CELL DISTRIBUTION WIDTH SD 42.5 fL 34.8-50.2 N (test code = RDW-SD) PLATELET COUNT (test code = 250 K/mm3 150-400 N PLT) MEAN PLATELET VOLUME (test code 8.9 fl 7.4-10.4 N = MPV) NEUTROPHIL % (test code = NT%) 62.2 % 49.0-76.0 N IMMATURE GRANULOCYTE % (test 0.2 % 0.0-0.4 N code = IG%) LYMPHOCYTE % (test code = LY%) 27.7 % 23.0-38.0 N MONOCYTE % (test code = MO%) 8.3 % 1.0-10.0 N EOSINOPHIL % (test code = EO%) 1.1 % 1.0-5.0 N BASOPHIL % (test code = BA%) 0.5 % 0.0-1.0 N NUCLEATED RBC % (test code = 0.0 % 0.0-0.1 N NRBC%) NEUTROPHIL # (test code = NT#) 4.0 K/mm3 2.4-6.3 N IMMATURE GRANULOCYTE # (test 0.01 x10 3/uL 0.00-0.07 N code = IG#) LYMPHOCYTE # (test code = LY#) 1.8 K/mm3 1.2-4.0 N MONOCYTE # (test code = MO#) 0.5 K/mm3 0.0-0.6 N EOSINOPHIL # (test code = EO#) 0.1 K/MM3 0.0-0.7 N BASOPHIL # (test code = BA#) 0.0 K/mm3 0.0-0.2 N NUCLEATED RBC # (test code = 0.00 X10 3uL 0.00-0.01 N NRBC#) - XR CHEST 1 [id number] 00:00:00 [facility] : 1985 Sex: M FAX: Maryann Geiger [phone] [place]: St: REG FAX: Phuong Caal APR [phone] --- Name: CADEN VAZQUEZ [facility] : 1985 Age/S: 36/M [address] [place] [address] Bl Unit #: [id number] Loc: ANA [place] [address] Phys: Phuong Caal APRNNP Acct: [id number] Dis Date: Status: REG ER PHONE #: [phone] Exam Date: 05/05/20212214 FAX #: [phone] Reason: Abdominal Pain EXAMS: CPT CODE:[id number] XR CHEST 1 V 41624 PROCEDURE INFORMATION: Exam: XR Chest Exam date and time: 05/05/2021 10:03 PM Age: 36 years old Clinical indication: Other: Abdominal pain TECHNIQUE: Imaging protocol: XR of the chest. Views: 1 view. COMPARISON: CT CHEST W/CONTRAST 04/12/2021 4:34 AM FINDINGS: Lungs: Normal lung volumes. No consolidation. Pleural spaces: There is opacity at the lateral left lung base withblunting of the right costophrenic angle suggesting a small right pleural effusion pleural effusion.No pneumothorax. Heart/Mediastinum: Heart size is within normal limits. Vasculature is unremarkable. Bones/joints: Previous upper thoracic spinal fusion utilizing pedicle screws and support rods. IMPRESSION: Findings suggesting a small right pleural effusion. at 2223 Reported and signed by: Stewart Hinton M.D. CC: Audelia Adams MD; Phuong Caal Technologist: RT Eric(R) Trnscrd Date/Time/By: 05/05/2021 (2222) : By: OrvilleTDO Orig Print D/T: S: 05/05/2021 (2222) PAGE 1 Signed Report- CT ABD PELVIS W/O [id number] 00:00:00[facility] : 1985 Sex: M Name: CADEN VAZQUEZ [facility] : 1985 Age/S: 36 / M [address] [place] [address] Unit #: [id number] Loc: ANA [place] [address] Phys: Phuong Caal Acct: [id number] Dis Date: Status: REG ER PHONE #: [phone] Exam Date: 05/05/20212224 FAX #: [phone] Reason: ABD PAIN, RLQPAIN, RIGHT GROIN PAIN EXAMS: CPT CODE: [id number] CT ABD PELVIS W/O CONT 48673 PROCEDURE INFORMATION: Exam: CT Abdomen And Pelvis Without Contrast Exam date and time: 05/05/2021 10:19 PM Age: 36 yearsold Clinical indication: Abdominal pain; Additional info: Abd pain, rlq pain, right groin pain TECHNIQUE: Imaging protocol: Computed tomography of the abdomen and pelvis without contrast. Radiation optimization: All CT scans at this facility use at least one of these dose optimization techniques: automated exposure control; mA and/or kV adjustment per patient size (includes targeted exams where dose is matched to clinical indication); or iterative reconstruction. COMPARISON: CT ABD PELVIS W/O CONT 04/23/2021 12:46 AM FINDINGS: ABDOMINAL ORGANS: The 2.0 and 1.4 cm low-density lesions in the posterior segment of the right lobe of the liver are incompletely characterized without contrast. The lesionshave been present on multiple previous studies dating back to 06/01/2015, favoring a benign etiology. The larger lesion demonstrated a peripheral lobule of enhancement on a previous CT from 12/23/2019,most likely indicating hemangioma. No acute CT abnormalities of the liver, spleen, pancreas, adrenalglands or kidneys are identified. There is no CT evidence of acute renal collecting system obstruction or calcified renal collecting system stone. BILIARY: The gallbladder is contracted. No significant biliary ductal dilatation is detected. GASTROINTESTINAL: Bowel assessment is limited by the absence of contrast combined with diminished intraperitoneal fat and respiratory motion blurring. No gross abnormalities of the stomach or duodenum are identified no small bowel dilatation is present to suggest obstruction. The appendix is definitively identified. No diverticular disease or inflammatory colonic wall thickening is identified. PERITONEUM: There is no evidence of free intraperitoneal air. No significant free intraperitoneal fluid. RETROPERITONEUM: The abdominal aorta is normal in caliber. No evidence of retroperitoneal mass or enlarged retroperitoneal lymph nodes. PELVIS: The bladder is unremarkable. No enlarged pelvic lymph nodes are detected. There is no evidence of inguinal hernia. LOWER THORAX: The lung bases appear clear of acute disease. ADDITIONL FINDINGS: None. PAGE 1 Signed Report(CONTINUED) [facility] 1985 Age/S: 36 / M [address] [place] [address] Blvd Unit #: [id number] Loc: ANA [place] [address] Phys: Phuong Caal Acct: [id number] Dis Date: Status: REG ER PHONE #: [phone] Exam Date: 05/05/20212224 FAX #: [phone] Reason: ABD PAIN, RLQ PAIN, RIGHT GROIN PAIN EXAMS: CPT CODE: [id number] CT ABD PELVIS W/O CONT 94350 <Cont inued> IMPRESSION: 1. Limited noncontrast exam. No acute CT abnormalities of the abdomen or pelvis are detected. 2. The appendix is not definitively identified. If acute appendicitis is suspected clinically, a follow-up study with oral and intravenous contrast should be considered to better differentiate the appendix from the unopacified small intestine in the right lower abdomen. SL:131 at 2251 Reported and signed by: Martin King M.D. CC: Maryann Adams MD; Phuong Caal Technologist:RT Jose(R)(CT) CTDI: DLP: Trnscb Date/Time: 05/05/2021 (2250) Desi Orig Print D/T: S: 05/05/2021 (2250) PAGE 2 Signed Report- US SCROTUM AND CNTS 2021-05-05 00:00:00 [facility] : 1985 Sex: M Name: CADEN VAZQUEZ [facility] : 1985 Age/S: 36 / M [address] [place] [address] Unit #: [id number] Loc: ANA [place] [address] Phys: Phuong Caal Acct: [id number] Dis Date: Status: REG ER PHONE #: [phone] Exam Date: 05/05/20212247 FAX #: [phone] Reason: Scrotal PainEXAMS: CPT CODE: [id number] US SCROTUM AND CNTS 61361 PROCEDURE INFORMATION: Exam: US Scrotum Exam date and time: 05/05/2021 10:26 PM Age: 36 years old Clinical indication: Scrotum pain; Additional info: Scrotal pain TECHNIQUE: Imaging protocol: Real- time ultrasound of the scrotum and contents with color Doppler and image documentation. COMPARISON: CT ABD PELVIS W/O CONT 05/05/2021 10:19 PM FINDINGS: TESTICLES: The right testicle measures 3.9 x 2.3 by 3.2 cm cm and the left testicle measures 4.4 x 2.3 by 3.2 cm. The testicles demonstrate symmetric homogeneous echotexture without evidence of testicular mass or testicular calcifications. Intratesticular blood flow was confirmed bilaterally using color Doppler. EPIDIDYMIDES: The visualized epididymal head, body and tail regions are unremarkable. SCROTUM: Bilateral varicoceles and small bilateral hydroceles are present. IMPRESSION: 1. No acute sonographic abnormalities of the testicles are detected. There is no evidence of testicular mass or acute testicular torsion. 2. Bilateral varicoceles. 3. Small bilateral hydroceles. SL:131 ElectronicallySigned by Stephany King on 05/05/2021 at 2328 Reported and signed by: Martin King M.D. CC: Maryann Adams MD; Phuong Caal Technologist: Rosana Elliott RDMS(BR)(AB) Trnscb Date/Time: 05/05/2021 (9227) tÁLVARO Orig Print D/T: S: 05/05/2021 (2131) Probe: PAGE 1 Signed ReportAutomated urine sediment leukocyte count by microscopy (number/high power field)2021-04-30 03:35:00 Test Item Value Reference Range Interpretation Comments Urine WBC (test code = 5821-4) 06-02 0-5 [facility] detection in urine sediment by light [id number] 03:35:00 Test Item Value Reference Range Interpretation Comments Urine RBC (test code = 49194-1) 06-02 0-5 [facility]acteria detection in urine sediment by light [id number] 03:35:00 Test Item Value Reference Range Interpretation Comments Urine Bacteria (test code = 32213-1) MANY NONE [facility] Hospital[facility]pithelial cells detection in urine sediment by light [id number] 03:35:00 Test Item Value Reference Range Interpretation Comments Urine Epithelial Cells (test code = FEW NONE 99163-2) [facility] Hospital[facility]ucus detection in urine sediment by light zpmiseggii9014-04-81 03:35:00 Test Item Value Reference Range Interpretation Comments Urine Mucus (test code = 8247-9) FEW RARE [facility] Hospital[facility] color bzhphkpxishtu1545-74-57 03:35:00 Test Item Value Reference Range Interpretation Comments Urine Color (test code = 5778-6) YELLOW YELLOW [facility] [id number] 03:35:00 Test Item Value Reference Range Interpretation Comments Urine Clarity (test code = 90903-7) CLEAR CLEAR [facility]rine by Test strip 2021-04-30 03:35:00 Test Item Value Reference Range Interpretation Comments Urine Specific [place] (test code = 1.025 1.010-1.025 5811-5) [facility] pH measurement by automated test strip 2021-04-30 03:35:00 Test Item Value Reference Range Interpretation Comments Urine pH (test code = 19241-0) 7 5-7 [facility] leukocyte esterase detection by automated test gktue3187-70-01 03:35:00 Test Item Value Reference Range Interpretation Comments Urine Leukocyte Esterase (test code NEGATIVE NEGATIVE = 55517-5) [facility] nitrite detection by automated test [id number] 03:35:00 Test Item Value Reference Range Interpretation Comments Urine Nitrite (test code = 34902-5) NEGATIVE NEGATIVE [facility] protein detection by automated test [id number] 03:35:00 Test Item Value Reference Range Interpretation Comments Urine Protein (test code = 01398-6) NEGATIVE NEGATIVE [facility] glucose detection by automated test ubhla9399-68-96 03:35:00 Test Item Value Reference Range Interpretation Comments Urine Glucose (UA) (test code = NEGATIVE NEGATIVE 92786-1) [facility] ketones detection by automated test ocuis6997-96-52 03:35:00 Test Item Value Reference Range Interpretation Comments Urine Ketones (test code = 55898-8) NEGATIVE NEGATIVE [facility] urobilinogen measurement by test strip (mass/volume)2021-04-30 03:35:00 Test Item Value Reference Range Interpretation Comments Urine Urobilinogen (test code = 0.2 0.2-1 15778-0) [facility] total bilirubin [id number] 03:35:00 Test Item Value Reference Range Interpretation Comments Urine Bilirubin (test code = 1977-8) NEGATIVE NEGATIVE [facility] erythrocytes zybmtpige9864-22-74 03:35:00 Test Item Value Reference Range Interpretation Comments Urine Blood (test code = 08664-2) NEGATIVE NEGATIVE [facility] HospitalAB[facility] (KUB)2021-04-30 03:08:00 [facility] [place] : 1985 Sex: M [address] [place], [place] [address] Patient Name: CADEN VAZQUEZ MR #: [id number] : 1985 Age/Sex: 36/M Req #: [id number] Adm Physician: Ordered by: JONATHAN CHEN MD Report #: [id number] Location: ER Room/Bed: Procedure: [id number] DX/ABDOMEN-1VIEW (KUB) Exam Date: 04/30/21 Exam Time: 0255 REPORT STATUS: Signed ABDOMEN-1VIEW (KUB) CLINICAL HISTORY: Abdominal pain TECHNIQUE: ABDOMEN-1VIEW (KUB) COMPARISON: None IMPRESSION: The bowel gas pattern is nonspecific and nonobstructive. Average fecal burden. Intact osseous structures. No free air identified. Signed by: Marco A Marsh on 04/30/2021 3:08 AM Dictated By: MARCO A MARSH MD 9 Transcribed By: PSCRIBE on 04/30/21307 COPY TO: JONATHAN CHEN MD- CT ABD PELVIS W/O [id number] 01:18:00 [facility] : 1985 Sex: M FAX: Leanne BryanEdmarDemetrioginette [phone] [place]: St: [facility] FAX: Lizabeth Phelan MD [phone] ------ Name: CADEN VAZQUEZ [facility] : 1985 Age/S: 36/M [address] [facility] [place] Unit: [id number] Loc: [place], [place]: [place] [address] Acct: [id number] Dis Date: Status: REG ER PHONE #: [phone] Exam Date: 04/23/2021 0049 FAX #: [phone] Reason: LEFT SIDED ABD PAIN EXAMS: CPT CODE: [id number] CT ABD PELVIS W/O CONT 65497 EXAM: CT ABDOMEN AND PELVIS WITHOUT IV CONTRAST DICTATION LOCATION: [facility] HISTORY: Male, 36 years of age with left-sided abdominal pain TECHNIQUE: Contrast: No IVcontrast was given. No GI contrast was given. Noncontrast phase: Abdomen and pelvis Reconstructions: Coronal and sagittal planes One or more of the following dose reduction techniques were used: Automated exposure control; adjustment of the mA and/or kV according to the patient size; and/or use of iterative reconstruction technique. COMPARISON: CT abdomen and pelvis with contrast 04/12/2021, CT abdomen and pelvis without contrast 06/01/2015 FINDINGS: Statements: Lack of intravenous contrast compromises evaluation of abdominopelvic organs and vasculature. Lower thorax: No focal infiltrate or effusion. Chronic pleural thickening in the right lateral costophrenic sulcus associated with old healed fracture of right posterior lateral 9th rib. Hepatobiliary: Liver is overall normal size. There are 2 hypo dense masses in the posterior right lobe of liver measuring 1.5 cm and 2.0 cm diameter respectively which have the appearance of benign hemangiomas on CT scan of 12/23/2019 and have not changed since 2015. No new liver masses are seen. The gallbladder is normal. No biliary dilation. Pancreas: Normal. Spleen: Normal. Adrenals: Normal. Genitourinary: No renal calculus or hydronephrosis. No ureteral stones. Urinary bladder is unremarkable. The visualized reproductive organs are unremarkable. PAGE 1 Signed Report (CONTINUED) FAX: Maryann Geiger [phone] [place]: St: [facility] FAX: Lizabeth Phelan MD [phone] Name: CADEN VAZQUEZ [facility] : 1985 Age/S: 36/M [address] [facility] Unit: [id number] Loc: [place], [place]: [place] [address] Acct: [id number] Dis Date: Status: REG ER PHONE #: [phone] Exam Date: 04/23/202148 FAX #: [phone] Reason: LEFT SIDED ABD PAIN EXAMS: CPT CODE: [id number] CT ABD PELVIS W/O CONT 64639 <Continued> Gastrointestinal: No bowel wall thickening, bowel obstruction or perienteric inflammation. The appendix is normal. Vascular: No aortic aneurysm. IVC unremarkable. Lymphatics: No enlarged lymph nodes by CT size criteria. Bones/Soft Tissues: No acute osseous findings. No ventral hernias. Peritoneum/Other: No free intraperitoneal air. No free intraperitoneal fluid. IMPRESSION: 1. No acute findings in abdomen or pelvis. 2. 1.5 cm and 2.0 cm diameter low-density masses in the posterior right lobe of liver unchanged since 2014 and felt to represent benign hemangiomas. 3. No free fluid or free air. at 0118 Reported and signed by: Payton London M.D.CC: Maryann Adams MD; Lizabeth Phelan MD Technologist: GILBERTO Steelscrd Dt/Tm: 04/23/2021 (0118) [email or web address] Orig Print D/T: S: 04/23/2021 (0121 PAGE 2 Signed ReportBASIC METABOLIC [id number] 00:42:00 Test Item Value Reference Range Interpretation Comments SODIUM (test code = NA) 142 mmol/l 134.0-147.0 N POTASSIUM (test code = K) 3.5 mmol/L 3.6-5.2 L CHLORIDE (test code = CL) 104 mmol/l 98.0-107.0 N CARBON DIOXIDE (test code = CO2) 31.2 mmol/l 21.0-33.0 N ANION GAP (test code = GAP) 10.3 0-20 N GLUCOSE (test code = GLU) 86 mg/dl 70.0-110.0 N BLOOD UREA NITROGEN (test code = 23 mg/dl 7.0-18.0 H BUN) CREATININE (test code = CREAT) 1.33 mg/dL 0.60-1.30 H GFR NON BLACK (test code = 65 mL/min 105-110 L GFRNONBLACK) GFR BLACK (test code = GFRBLACK) 78 mL/min 127-133 L CALCIUM (test code = CA) 9.1 mg/dl 8.0-10.5 N HEPATIC FUNCTION PANEL [id number] 00:42:00 Test Item Value Reference Range Interpretation Comments TOTAL PROTEIN (test code = PROT) 7.8 gm/dL 6.4-8.2 N ALBUMIN (test code = ALB) 4.2 gm/dl 3.2-4.7 N BILIRUBIN TOTAL (test code = BILT) 0.3 mg/dl 0.0-1.0 N BILIRUBIN DIRECT (test code = 0.1 mg/dl 0.0-0.3 N BILD) SGOT/AST (test code = AST) 21 Units/L 15-37 N SGPT/ALT (test code = ALT) 25 Units/L 12.0-78.0 N ALKALINE PHOSPHATASE TOTAL (test 54 Units/L 50.0-136.0 N code = ALKP) [id number] 00:42:00 Test Item Value Reference Range Interpretation Comments LIPASE (test code = LIP) 223 Units/L 65.0-230.0 N [id number] 00:42:00 Test Item Value Reference Range Interpretation Comments TROPONIN-I (test <0.02 NG/ML 0.00-0.06 N REFERENCE R LETA code = TROPI) TROPONIN I HEA LTHY INDIVIDUALS: <0 .06 ng/mL R/O ISCHE NANDO: 0.07 - 0.60 ng/ mL CUT-OFF RANGE F OR AMI: 0.60 - 1.5 ng/m L URINALYSIS [id number] 00:28:00 Test Item Value Reference Range Interpretation Comments UA COLOR (test code = YELLOW COLU) UA APPEARANCE (test code CLEAR = APPU) UA GLUCOSE DIPSTICK (test NORMAL mg/dl NORMAL code = DGLUU) UA BILIRUBIN DIPSTICK NEGATIVE mg/dL NEGATIVE (test code = BILU) UA KETONE DIPSTICK (test NEGATIVE mg/dl NEGATIVE code = KETU) UA SPECIFIC GRAVITY (test 1.025 1.000-1.030 code = SGU) UA BLOOD DIPSTICK (test 25 Robbie/micL Robbie/micL NEGATIVE A code = APARNA) UA PH DIPSTICK (test code 6.0 5.0-9.0 = JACKY) UA PROTEIN DIPSTICK (test 15 mg/dl mg/dl NEGATIVE A code = PROU) UA UROBILINIOGEN DIPSTICK 1.0 mg/dl mg/dl NORMAL A (test code = URO) UA NITRITE DIPSTICK (test NEGATIVE NEGATIVE code = RM) UA LEUKOCYTE ESTERASE NEGATIVE Veronica/micL NEGATIVE DIPSTICK (test code = LEUU) UA WBC (test code = WBCU) 0-3 WBC/HPF NONE UA RBC (test code = RBCU) 3-5 RBC/HPF 0-3 UA EPITHELIAL CELLS (test 2-5 EPI/HPF 0-3 A code = EPIU) UA BACTERIA (test code = FEW NONE BACU) CBC W/AUTO [id number] 00:22:00 Test Item Value Reference Range Interpretation Comments WHITE BLOOD CELL (test code = 8.6 K/mm3 4.5-11.0 N WBC) RED BLOOD CELL (test code = 4.62 M/mm3 4.40-5.90 N RBC) HEMOGLOBIN (test code = HGB) 13.5 gm/dL 13.0-17.0 N HEMATOCRIT (test code = HCT) 42.1 % 36.0-48.0 N MEAN CELL VOLUME (test code = 91.1 UM3 80.0-94.0 N MCV) MEAN CELL HGB (test code = MCH) 29.2 UUG 25.5-32.5 N MEAN CELL HGB CONCETRATION 32.1 gm/dL 29.0-35.5 N (test code = MCHC) RED CELL DISTRIBUTION WIDTH 12.9 % 11.5-15.0 N (test code = RDW) RED CELL DISTRIBUTION WIDTH SD 42.5 fL 34.8-50.2 N (test code = RDW-SD) PLATELET COUNT (test code = 299 K/mm3 150-400 N PLT) MEAN PLATELET VOLUME (test code 9.1 fl 7.4-10.4 N = MPV) NEUTROPHIL % (test code = NT%) 60.8 % 49.0-76.0 N IMMATURE GRANULOCYTE % (test 0.2 % 0.0-0.4 N code = IG%) LYMPHOCYTE % (test code = LY%) 28.6 % 23.0-38.0 N MONOCYTE % (test code = MO%) 9.1 % 1.0-10.0 N EOSINOPHIL % (test code = EO%) 1.0 % 1.0-5.0 N BASOPHIL % (test code = BA%) 0.3 % 0.0-1.0 N NUCLEATED RBC % (test code = 0.0 % 0.0-0.1 N NRBC%) NEUTROPHIL # (test code = NT#) 5.2 K/mm3 2.4-6.3 N IMMATURE GRANULOCYTE # (test 0.02 x10 3/uL 0.00-0.07 N code = IG#) LYMPHOCYTE # (test code = LY#) 2.5 K/mm3 1.2-4.0 N MONOCYTE # (test code = MO#) 0.8 K/mm3 0.0-0.6 H EOSINOPHIL # (test code = EO#) 0.1 K/MM3 0.0-0.7 N BASOPHIL # (test code = BA#) 0.0 K/mm3 0.0-0.2 N NUCLEATED RBC # (test code = 0.00 X10 3uL 0.00-0.01 N NRBC#) - CT CHEST [id number] 05:01:00 [facility] : 1985 Sex: M FAX: Maryann Geiger [phone] [place]: St: REG FAX: Scott Gomez MD Name: TAYLORCADEN [facility] : 1985 Age/S: 36/M [address] [facility] Unit: [id number] Loc: [address] Phys: [place] [address] Acct: [id number] Dis Date: Status: REG ER PHONE #: [phone] Exam Date: 04/12/2021 0446 FAX #: [phone] Reason: possible right subpulmonic effusion on cxr EXAMS: CPT CODE: [id number] CT CHEST W/CONTRAST 34896 Examination: Chest, abdomen, and pelvic CT with contrast Location code: S17 Comparison: Abdomen and pelvic CT June 01, 2015 Technique: Thin section axial postcontrast imaging through the chest, abdomen, and pelvis is performed followed by coronal and sagittal reformations. All CT scans are performed using radiation dose reduction technique. Technicalfactors are evaluated and adjusted to insure appropriate moderation of exposure. Automated dose management technology is applied to adjust the radiation dose to minimize exposure while achieving a diagnostic quality image. Discussion: Clinical history is remarkable for possible subpulmonic effusion, recent radiograph demonstrated lateral elevation of the right diaphragm. Thyroid gland, trachea, and major bronchi are within normal limits. There are no pathologically enlarged lymph nodes present. There is pleural thickening at the right costophrenic angle adjacent rib deformities present. This contributes to elevation of the diaphragm seen on the recent radiograph. Very tiny amount of pleural fluid is present, insignificant. No evidence of consolidation or pneumothorax. Within the abdomen and pelvis, there are 2 hypodensities present in the right lobe of the liver, each demonstrating centripetal enhancement favor hemangioma. Right lobe contains a 2 cm hypodense nodule and an adjacent 1.5 cm hypodense nodule. Gallbladder and spleen appear normal. The pancreas and adrenal gland bilaterally are normal. Kidneys demonstrate uniform enhancement. Moderate feces is present within the colon. The appendix where seen is normal. Mild small bowel stasis is present. Bladder, prostate, and seminal vesicles are unremarkable. PAGE 1 Signed Report (CONTINUED) FAX: Maryann Geiger [phone] [place]: St: REG FAX: Scott Gomez MD Name: TAYLORCADEN CHURCH [facility] : 1985 Age/S: 36/M [address] [facility] Unit: [id number] Loc: [address] Phys: [place] [address] Acct: [id number] Dis Date: Status: REG ER PHONE #: [phone] Exam Date: 04/12/2021 0446 FAX #: [phone] Reason: possible right subpulmonic effusion on cxr EXAMS: CPT CODE: [id number] CT CHEST W/CONTRAST 56913 <Continued> There are no lytic or blastic lesions present within the osseous structures. Postsurgical change of the thoracic spine is present. Impression: 1. Pleural thickening is present at the right lateral costophrenic sulcus underlying old rib deformities, this creates the elevation of the lateral hemidiaphragm. There is small amount of fluid at that level, insignificant. 2. Hepatic hemangioma. at 0501 Reported and signed by: Robert Zhang M.D. CC: Edmar Adams MD; Scott Gomez MD Technologist: Quynh Trnyousufrd Dt/Tm: 04/12/2021 (0501) [email or web address] Orig Print D/T: S: 04/12/2021 (2094 PAGE 2 Signed Report- CT ABD PELVIS [id number] 05:01:00 [facility] CADEN [facility] : 1985 Sex: M FAX: Scott Gomez MD [place]: St: REG Name: TAYLORCADEN [facility] : 1985 Age/S: 36/M [address] [facility] Unit: [id number] Loc: [address] [place], [place]: [place] [address] Acct: [id number] Dis Date: Status: REG ER PHONE #: [phone] Exam Date: 04/12/2021445 FAX #: [phone] Reason: lower abdominal pain, hematuria EXAMS: CPT CODE: [id number] CT ABD PELVIS W/CONT 38148 Examination: Chest, abdomen, and pelvic CT with contrast Location code: S17 Comparison: Abdomen and pelvic CT June 01, 2015 Technique: Thin section axial postcontrast imaging through the chest, abdomen,and pelvis is performed followed by coronal and sagittal reformations. All CT scans are performed using radiation dose reduction technique. Technical factors are evaluated and adjusted to insure appropriate moderation of exposure. Automated dose management technology is applied to adjust the radiation dose to minimize exposure while achieving a diagnostic quality image. Discussion: Clinical history is remarkable for possible subpulmonic effusion, recent radiograph demonstrated lateral elevation of the right diaphragm. Thyroid gland, trachea, and major bronchi are within normal limits. There are nopathologically enlarged lymph nodes present. There is pleural thickening at the right costophrenic a ngle adjacent rib deformities present. This contributes to elevation of the diaphragm seen on the recent radiograph. Very tiny amount of pleural fluid is present, insignificant. No evidence of consolidation or pneumothorax. Within the abdomen and pelvis, there are 2 hypodensities present in the right lobe of the liver, each demonstrating centripetal enhancement favor hemangioma. Right lobe contains a2 cm hypodense nodule and an adjacent 1.5 cm hypodense nodule. Gallbladder and spleen appear normal.The pancreas and adrenal gland bilaterally are normal. Kidneys demonstrate uniform enhancement. Moderate feces is present within the colon. The appendix where seen is normal. Mild small bowel stasis is present. Bladder, prostate, and seminal vesicles are unremarkable. There are no lytic or blastic lesions present within the osseous PAGE 1 Signed Report (CONTINUED) FAX: Scott Gomez MD [place]: St: REG -- Name: CADEN VAZQUEZ [facility] : 1985 Age/S: 36/M [address] Unit: [id number] Loc: [place] [place], [place]: [place] [address] Acct: [id number] Dis Date: Status: REG ER PHONE #: [phone] Exam Date: 04/12/2021 0446 FAX #: [phone] Reason: lower abdominal pain, hematuria EXAMS: CPT CODE: [id number] CT ABD PELVIS W/CONT 68234 <Continued> structures. Postsurgical change of the thoracic spine is present. Impression: 1. Pleural thickening is present at the right lateral costophrenic sulcus underlying old rib deformities, this creates the elevation of the lateral hemidiaphragm. There is small amount of fluid at that level, insignificant. 2. Hepatic hemangioma. at 0501 Reported and signed by: Robert Zhang M.D. CC: Scott Gomez MD Technologist: Jerrica Long Trnscrd Dt/Tm: 0 04/12/2021 (050) [email or web address] Orig Print D/T: S: 04/12/2021 (0504 PAGE 2 Signed ReportUA RFLX MICR CULT IF [id number] 04:25:00 Test Item Value Reference Range Interpretation Comments UA GLUCOSE DIPSTICK NORMAL mg/dl NORMAL (test code = DGLUU) UA BILIRUBIN DIPSTICK NEGATIVE mg/dL NEGATIVE (test code = BILU) UA KETONE DIPSTICK NEGATIVE mg/dl NEGATIVE (test code = KETU) UA SPECIFIC GRAVITY 1.020 1.000-1.030 (test code = SGU) UA BLOOD DIPSTICK 50 Robbie/micL NEGATIVE A (test code = APARNA) Robbie/micL UA PH DIPSTICK (test 6.0 5.0-9.0 code = JACKY) UA PROTEIN DIPSTICK 30 mg/dl NEGATIVE (test code = PROU) UA UROBILINIOGEN NORMAL mg/dl NORMAL DIPSTICK (test code = URO) UA NITRITE DIPSTICK NEGATIVE NEGATIVE (test code = RM) UA LEUKOCYTE ESTERASE NEGATIVE NEGATIVE DIPSTICK (test code = Veronica/micL LEUU) UA WBC (test code = 0-3 WBC/HPF NONE WBCU) UA CULTURE NEEDED? NO, WBC<10 Culture Chk Criteria not (test code = UACULT) Criteria met, Ur ine Culture cancelled. UA SQUAMOUS CELLS 0-2 #/hpf (test code = SQU) Indication for culture: Gross HematuriaSpecimen Description: CLEAN CATCH- XR CHEST 1 [id number] 04:16:00 [facility] : 1985 Sex: M FAX: Scott Gomez MD [place]: St: REG Name: CADEN VAZQUEZ [facility] : 1985 Age/S: 36/M [address] [facility] Unit #: [id number] Loc: [address] [place] [address] Phys: [place] [address] Acct:[id number] Dis Date: Status: REG ER PHONE #: [phone] Exam Date: 04/12/2021 0351 FAX #: [phone] Reason: Abdominal Pain EXAMS: CPT CODE: [id number] XR CHEST 1 V 30621 Examination: Chest 1 view Location code: S17 Comparison: Chest December 18, 2019 Discussion: Clinical history is remarkable for abdominal pain. Cardiac silhouette is normal in size. Postsurgical change of the spine is present. There is lateral elevation of the right diaphragm could represent subpulmonic effusion. Postsurgical change of the thoracic spine is noted. Impression: 1. Lateral elevation of the right diaphragm may represent subpulmonic effusion. at 0416 Reported and signed by: Robert Zhang M.D. CC: Scott Gomez MD Technologist: STANISLAV ESPINOSA Trnscrd Date/Time/By: 04/12/2021 (0416) : By: [email or web address] PAGE 1 Signed Report FAX: Scott Gomez MD [place]: St: REG ---- Name: CADEN VAZQUEZ [facility] : 1985 Age/S: 36/M [address] [facility] Unit #: [id number] Loc: [address] [place]: [place] [address] Acct: [id number] Dis Date: Status: REG ER PHONE #: [phone] Exam Date: 04/12/2021 0351 FAX #: [phone] Reason: Abdominal Pain EXAMS: CPT CODE: [id number] XR CHEST 1 V 47707 <Continued> Orig Print D/T: S: 04/12/2021 (0419) PAGE 2 Signed ReportBASIC METABOLIC [id number] 04:15:00 Test Item Value Reference Range Interpretation Comments SODIUM (test code = NA) 141 mmol/l 134.0-147.0 N POTASSIUM (test code = K) 3.5 mmol/L 3.6-5.2 L CHLORIDE (test code = CL) 102 mmol/l 98.0-107.0 N CARBON DIOXIDE (test code = CO2) 29.9 mmol/l 21.0-33.0 N ANION GAP (test code = GAP) 12.6 0-20 N GLUCOSE (test code = GLU) 110 mg/dl 70.0-110.0 N BLOOD UREA NITROGEN (test code = 16 mg/dl 7.0-18.0 N BUN) CREATININE (test code = CREAT) 1.14 mg/dL 0.60-1.30 N GFR NON BLACK (test code = 77 mL/min 105-110 L GFRNONBLACK) GFR BLACK (test code = GFRBLACK) 93 mL/min 127-133 L CALCIUM (test code = CA) 8.9 mg/dl 8.0-10.5 N HEPATIC FUNCTION PANEL [id number] 04:15:00 Test Item Value Reference Range Interpretation Comments TOTAL PROTEIN (test code = PROT) 7.4 GM/DL 6.0-8.1 N ALBUMIN (test code = ALB) 3.9 gm/dL 3.2-4.7 N BILIRUBIN TOTAL (test code = BILT) 0.4 mg/dl 0.0-1.0 N BILIRUBIN DIRECT (test code = 0.1 mg/dl 0.0-0.3 N BILD) SGOT/AST (test code = AST) 18 Units/L 15-37 N SGPT/ALT (test code = ALT) 26 Units/L 12.0-78.0 N ALKALINE PHOSPHATASE TOTAL (test 44 Units/L 50.0-136.0 L code = ALKP) [id number] 04:15:00 Test Item Value Reference Range Interpretation Comments LIPASE (test code = LIP) 148 Units/L 65.0-230.0 N [id number] 04:15:00 Test Item Value Reference Range Interpretation Comments TROPONIN-I (test <0.02 NG/ML 0.00-0.06 N REFERENCE R LETA code = TROPI) TROPONIN I HEA LTHY INDIVIDUALS: <0 .06 ng/mL R/O ISCHE NANDO: 0.07 - 0.60 ng/ mL CUT-OFF RANGE F OR AMI: 0.60 - 1.5 ng/m L CBC W/AUTO [id number] 03:46:00 Test Item Value Reference Range Interpretation Comments WHITE BLOOD CELL (test code = 6.7 K/mm3 4.5-11.0 N WBC) RED BLOOD CELL (test code = 4.60 M/mm3 4.40-5.90 N RBC) HEMOGLOBIN (test code = HGB) 13.6 gm/dL 13.0-17.0 N HEMATOCRIT (test code = HCT) 41.9 % 36.0-48.0 N MEAN CELL VOLUME (test code = 91.1 UM3 80.0-94.0 N MCV) MEAN CELL HGB (test code = MCH) 29.6 UUG 25.5-32.5 N MEAN CELL HGB CONCETRATION 32.5 gm/dL 29.0-35.5 N (test code = MCHC) RED CELL DISTRIBUTION WIDTH 12.5 % 11.5-15.0 N (test code = RDW) RED CELL DISTRIBUTION WIDTH SD 41.3 fL 34.8-50.2 N (test code = RDW-SD) PLATELET COUNT (test code = 249 K/mm3 150-400 N PLT) MEAN PLATELET VOLUME (test code 9.0 fl 7.4-10.4 N = MPV) NEUTROPHIL % (test code = NT%) 63.3 % 49.0-76.0 N IMMATURE GRANULOCYTE % (test 0.1 % 0.0-0.4 N code = IG%) LYMPHOCYTE % (test code = LY%) 26.3 % 23.0-38.0 N MONOCYTE % (test code = MO%) 9.3 % 1.0-10.0 N EOSINOPHIL % (test code = EO%) 0.7 % 1.0-5.0 L BASOPHIL % (test code = BA%) 0.3 % 0.0-1.0 N NUCLEATED RBC % (test code = 0.0 % 0.0-0.1 N NRBC%) NEUTROPHIL # (test code = NT#) 4.2 K/mm3 2.4-6.3 N IMMATURE GRANULOCYTE # (test 0.01 x10 3/uL 0.00-0.07 N code = IG#) LYMPHOCYTE # (test code = LY#) 1.8 K/mm3 1.2-4.0 N MONOCYTE # (test code = MO#) 0.6 K/mm3 0.0-0.6 N EOSINOPHIL # (test code = EO#) 0.1 K/MM3 0.0-0.7 N BASOPHIL # (test code = BA#) 0.0 K/mm3 0.0-0.2 N NUCLEATED RBC # (test code = 0.00 X10 3uL 0.00-0.01 N NRBC#) POCT URINALYSIS W SPECIFIC [id number] 00:07:00 Test Item Value Reference Range Interpretation Comments POCT U SP GRAV (test code = 1.030 mg/dl 1.005-1.025 A 3255) POCT PH U (test code = 3254) 5 mg/dl 5-8 POCT U LEUK EST (test code = trace Negative - Negative 3263) POCT U NIT (test code = 3262) neg Negative - Negative POCT U PROT (test code = trace Negative - Negative 3259) POCT U GLU (test code = 3256) norm Negative - Negative POCT U KETONE (test code = + Negative - Negative 3258) POCT U UROBILI (test code = norm 0.2-1 3260) POCT U BILI (test code = neg Negative - Negative 3261) POCT U BLD (test code = 3257) about 250 Negative - Negative POCT U COLOR (test code = dark yellow 3266) POCT U APPEAR (test code = clear 3267) Lab Interpretation (test code Abnormal = 83990-7) [facility] urine drug screen manually resulted 2021-02-26 16:21:00 Test Item Value Reference Range Interpretation Comments THC (test code = 8181530) Negative Cocaine Screen, Urine (test None Detected None Detected code = 50847-2) Amphetamine Screen, Urine (test Negative code = 5630675) Methamphetamine, POC (test code Negative Negative = 88995-7) Morphine (MOP/CNK2962) (test Negative code = 2077623) MDMA URINE (test code = Negative ng/mL 04429-7) Barbiturate Screen, Ur (test None Detected None Detected code = 96060-0) Benzodiazepine Ur Qual (test Negative code = 88515-2) Methadone (MTD) (test code = Negative 1005479) Oxycodone Screen, Ur (test code Negative = 75807-0) PCP Scrn, Ur (test code = Negative 90468-8) TCA, Urine (test code = None Detected 34795-6) Buprenorphine, Urine (test code Negative = 3414-0) [facility] urine drug screen manually [id number] 16:21:00 Test Item Value Reference Range Interpretation Comments THC (test code = 9801664) Negative Cocaine Screen, Urine (test None Detected None Detected code = 26773-3) Amphetamine Screen, Urine (test Negative code = 1511221) Methamphetamine, POC (test code Negative Negative = 44979-1) Morphine (MOP/KAR7054) (test Negative code = 4067175) MDMA URINE (test code = Negative ng/mL 39593-1) Barbiturate Screen, Ur (test None Detected None Detected code = 35352-0) Benzodiazepine Ur Qual (test Negative code = 67110-2) Methadone (MTD) (test code = Negative 3498043) Oxycodone Screen, Ur (test code Negative = 56012-0) PCP Scrn, Ur (test code = Negative 09076-5) TCA, Urine (test code = None Detected 83634-9) Buprenorphine, Urine (test code Negative = 3414-0) [facility] nCoV [id number] 08:41:00 Test Item Value Reference Range Interpretation Comments Coronavirus 2019 Negative NEGATIVE Negative re sults should be nCoV Bedside (test treated a s presumptive and code = ifinconsistent with [id number]) clinical signs and symptoms, or ne cessaryfor patient managem ent, should be tested with an alternativemole cular assay. Negative result s do not preclude DMEA-RiW-2npqmq tion and should not be u sed as the sole basis forp atient management deci sions. Negative result s should beconsidered in the context of a patient's recent exposures,histo ry, presence of clinical sig ns and symptoms consis tentwith COVID-19. - CT ABD PELVIS [id number] 02:23:00 FAX: Fartun Iyer MD [phone] [place]: [address] St: REG Name: CADEN VAZQUEZ [facility] : 1985 Age/S: 34/M [address] Unit: [id number] Loc: E.EXP [place], [place] Phys: Fartun Iyer MD77591 Acct: [id number] Dis Date: Status: REG ER PHONE #: [phone] Exam Date: 12/23/2019 0209 FAX #: [phone] Reason: URINARY RETENTION/DECREASED URINE OUTPUT EXAMS: CPT CODE: [id number] CT ABD PELVIS W/CONT 72909 EXAM: - CT ABD PELVIS W/CONT INDICATION: URINARY RETENTION/DECREASED URINE OUTPUT Location code:C3 TECHNIQUE: Contrast - IV contrast was given. No oral contrast was given Portal venous phase - abdomen and pelvis No delayed phase images were obtained. Reconstructions - coronal and sagittal planes Automated exposure reduction (Auto mA/Smart mA) was utilized in compliance with ACR [employer] with DLP of 350 mGy-cm. COMPARISON: 06/01/2015 FINDINGS: Statements: None. Thoracic: Remote right 9th and 10th rib fractures with adjacent lung scarring is similar. The lung bases are otherwise clear. Hepatobiliary: Multiple low density lesions measuring up to 1.8 x 1.8 cm sized hepatic parenchyma are seen unchanged with prior exam with peripheral nodular enhancement favoring hemangiomas. The gallbladder is normal. No biliary dilation. Pancreas: Normal. Spleen: Normal. Adrenals: Normal. Genitourinary: The kidneys are normal. No evidence of hydronephrosis. Evaluation of the bladder is limited, but no obvious bladder abnormality is present. Gastrointestinal: No bowel obstruction or perienteric inflammation. The appendix is normal. Vascular: No evidence of aneurysm or dissection. Lymphatics: No enlarged lymph nodes by CT size criteria. PAGE 1 Signed Report (CONTINUED) FAX: Fartun Iyer MD [phone] [place]: St: REG Name: CADEN VAZQUEZ [facility] : 1985 Age/S: 34/M [address] [facility] Unit: [id number] Loc: E.EXP [place], [place]: [place] [address] Acct: [id number] Dis Date: Status: REG ER PHONE #: [phone] Exam Date: 12/23/2019 0209 FAX #: [phone] Reason: URINARY RETENTION/DECREASED URINE OUTPUT EXAMS: CPT CODE: [id number] CT ABD PELVIS W/CONT 01757 <Continued> Bones/Soft Tissues: No acute osseous findings. No ventral hernias. Peritoneum/Other: No extraluminal air. No extraluminal fluid. IMPRESSION: 1. No acute abnormality with chronic findings as above. at 0223 Reported and signed by: Aly Wilder M.D. CC: Fartun Iyer MD Technologist: JERRICA ANDERSON Trnscrd Dt/Tm: 12/23/2019 (0223) [email or web address] Orig Print D/T: S: 12/23/2019 (0226 PAGE 2 SignedReportBASIC METABOLIC [id number] 00:30:00 Test Item Value Reference Range Interpretation Comments SODIUM (test code = NA) 138 mmol/l 134.0-147.0 N POTASSIUM (test code = K) 3.8 mmol/L 3.6-5.2 N CHLORIDE (test code = CL) 99 mmol/l 98.0-107.0 N CARBON DIOXIDE (test code = CO2) 28.4 mmol/l 21.0-33.0 N ANION GAP (test code = GAP) 14.4 0-20 N GLUCOSE (test code = GLU) 123 mg/dl 70.0-110.0 H BLOOD UREA NITROGEN (test code = 10 mg/dl 7.0-18.0 N BUN) CREATININE (test code = CREAT) 1.09 mg/dL 0.60-1.30 N GFR NON BLACK (test code = 82 mL/min 105-110 L GFRNONBLACK) GFR BLACK (test code = GFRBLACK) 99 mL/min 127-133 L CALCIUM (test code = CA) 9.0 mg/dl 8.0-10.5 N URINALYSIS [id number] 00:30:00 Test Item Value Reference Range Interpretation Comments UA COLOR (test code = YELLOW COLU) UA APPEARANCE (test code SLHZY = APPU) UA GLUCOSE DIPSTICK (test NORMAL mg/dl NORMAL code = DGLUU) UA BILIRUBIN DIPSTICK NEGATIVE mg/dL NEGATIVE (test code = BILU) UA KETONE DIPSTICK (test NEGATIVE mg/dl NEGATIVE code = KETU) UA SPECIFIC GRAVITY (test 1.025 1.000-1.030 code = SGU) UA BLOOD DIPSTICK (test 250 Robbie/micL NEGATIVE A code = APARNA) Robbie/micL UA PH DIPSTICK (test code 6.0 5.0-9.0 = JACKY) UA PROTEIN DIPSTICK (test 100 mg/dl NEGATIVE code = PROU) UA UROBILINIOGEN DIPSTICK NORMAL mg/dl NORMAL (test code = URO) UA NITRITE DIPSTICK (test NEGATIVE NEGATIVE code = RM) UA LEUKOCYTE ESTERASE NEGATIVE Veronica/micL NEGATIVE DIPSTICK (test code = LEUU) UA WBC (test code = WBCU) 0-3 WBC/HPF NONE UA RBC (test code = RBCU) TNTC RBC/HPF 0-3 A UA EPITHELIAL CELLS (test 2-5 EPI/HPF 0-3 A code = EPIU) UA BACTERIA (test code = FEW NONE BACU) CBC W/AUTO [id number] 00:26:00 Test Item Value Reference Range Interpretation Comments WHITE BLOOD CELL (test code = 10.9 K/mm3 4.5-11.0 N WBC) RED BLOOD CELL (test code = 4.69 M/mm3 4.40-5.90 N RBC) HEMOGLOBIN (test code = HGB) 13.6 gm/dL 13.0-17.0 N HEMATOCRIT (test code = HCT) 42.6 % 36.0-48.0 N MEAN CELL VOLUME (test code = 90.8 UM3 80.0-94.0 N MCV) MEAN CELL HGB (test code = MCH) 29.0 UUG 25.5-32.5 N MEAN CELL HGB CONCETRATION 31.9 gm/dL 29.0-35.5 N (test code = MCHC) RED CELL DISTRIBUTION WIDTH 13.5 % 11.5-15.0 N (test code = RDW) RED CELL DISTRIBUTION WIDTH SD 44.8 fL 34.8-50.2 N (test code = RDW-SD) PLATELET COUNT (test code = 354 K/mm3 150-400 N PLT) MEAN PLATELET VOLUME (test code 9.2 fl 7.4-10.4 N = MPV) NEUTROPHIL % (test code = NT%) 70.7 % 49.0-76.0 N IMMATURE GRANULOCYTE % (test 0.4 % 0.0-0.4 N code = IG%) LYMPHOCYTE % (test code = LY%) 21.9 % 23.0-38.0 L MONOCYTE % (test code = MO%) 6.6 % 1.0-10.0 N EOSINOPHIL % (test code = EO%) 0.2 % 1.0-5.0 L BASOPHIL % (test code = BA%) 0.2 % 0.0-1.0 N NEUTROPHIL # (test code = NT#) 7.7 K/mm3 2.4-6.3 H IMMATURE GRANULOCYTE # (test 0.04 x10 3/uL 0.00-0.07 N code = IG#) LYMPHOCYTE # (test code = LY#) 2.4 K/mm3 1.2-4.0 N MONOCYTE # (test code = MO#) 0.7 K/mm3 0.0-0.6 H EOSINOPHIL # (test code = EO#) 0.0 K/MM3 0.0-0.7 N BASOPHIL # (test code = BA#) 0.0 K/mm3 0.0-0.2 N URINALYSIS [id number] 00:22:00 Test Item Value Reference Range Interpretation Comments UA COLOR (test code = YELLOW COLU) UA APPEARANCE (test code SLHZY = APPU) UA GLUCOSE DIPSTICK (test NORMAL mg/dl NORMAL code = DGLUU) UA BILIRUBIN DIPSTICK NEGATIVE mg/dL NEGATIVE (test code = BILU) UA KETONE DIPSTICK (test NEGATIVE mg/dl NEGATIVE code = KETU) UA SPECIFIC GRAVITY (test 1.025 1.000-1.030 code = SGU) UA BLOOD DIPSTICK (test 250 Robbie/micL NEGATIVE A code = APARNA) Robbie/micL UA PH DIPSTICK (test code 6.0 5.0-9.0 = JACKY) UA PROTEIN DIPSTICK (test 100 mg/dl NEGATIVE code = PROU) UA UROBILINIOGEN DIPSTICK NORMAL mg/dl NORMAL (test code = URO) UA NITRITE DIPSTICK (test NEGATIVE NEGATIVE code = RM) UA LEUKOCYTE ESTERASE NEGATIVE Veronica/micL NEGATIVE DIPSTICK (test code = LEUU) UA WBC (test code = WBCU) WBC/HPF NONE UA RBC (test code = RBCU) RBC/HPF 0-3 UA EPITHELIAL CELLS (test EPI/HPF 0-3 code = EPIU) UA BACTERIA (test code = NONE BACU) [id number] 22:41:00 Test Item Value Reference Range Interpretation Comments ALCOHOL (test code < 3 mg/dL 0.0-3.0 N --------- --------INTERPRE = ALC) TIVE DATA NOTE: POSITIVE SCREEN ING RESULTS SHOULD BE CONSIDERED PRESUMPTIVE.WHE N COLLECTED FOR M EDICAL PURPOSES ONLY. SPECIMEN WILL NOTBE IVONNE ECTED BY CHAIN OF CUSTOD Y.IF A CONFIRMATION OF POSITIVE RESULTS IS YARELY RED, ACONFIRMATION T EST MUST BE REQUESTED BY THE PHYSICIAN AT AN ADDITIONAL CHARGE TO THE P ATIENT. DRUGS OF ABUSE SCREEN [id number] 22:41:00 Test Item Value Reference Range Interpretation Comments UA PH DIPSTICK (test 6.0 5.0-8.0 code = JACKY) URN COCAINE (test POSITIVE <300 ng/mL A This test provides only a code = COCAURN) preliminary test result. A morespecific alternate chemical method must be used in order t oobtain a confirmed yuliana tical result. Gas chromatography/ mass spectrometry (G C/MS) is thepreferred co nfirmatory method. Other c hemical confirmationmet hods are available. Clin ical consideration a nd professional ju dgment should be appli ed to any drug of abusete st result, particularly wh en preliminary pos itive resultsare used.Unconfirme d screening resul ts must not be used fornon-medical purposes (e.g., employme nt testing, legalt esting). URN CANNABINOIDS POSITIVE <50 ng/mL A This test p rovides only a (test code = preliminary siomara t result. CANNABURN) A morespecific alternate chemical method must be used in order t oobtain a confirmed yuliana tical result. Gas chromatography/ mass spectrometry (G C/MS) is thepreferred co nfirmatory method. Other c hemical confirmationmet hods are available. Clin ical consideration a nd professional ju dgment should be appli ed to any drug of abusete st result, particularly wh en preliminary pos itive resultsare used.Unconfirme d screening resul ts must not be used fornon-medical purposes (e.g., employme nt testing, legalt esting). URN AMPHETAMINE (test NEGATIVE <1000 ng/mL code = AMPHETURN) URN BARBITURATE (test NEGATIVE <200 ng/mL code = BARBITURN) URN BENZODIAZEPINE NEGATIVE <200 ng/mL (test code = BENZOURN) URN OPIATES (test POSITIVE <300 ng/mL A This test provides only a code = OPIATURN) preliminary test result. A morespecific alternate chemical method must be used in order t oobtain a confirmed yuliana tical result. Gas chromatography/ mass spectrometry (G C/MS) is thepreferred co nfirmatory method. Other c hemical confirmationmet hods are available. Clin ical consideration a nd professional ju dgment should be appli ed to any drug of abusete st result, particularly wh en preliminary pos itive resultsare used.Unconfirme d screening resul ts must not be used fornon-medical purposes (e.g., employme nt testing, legalt esting). URN PHENCYCLIDINE NEGATIVE <25 ng/mL (PCP) (test code = PHENCURN) URN METHADONE (test NEGATIVE <300 ng/mL code = METHAURN) URINALYSIS [id number] 22:40:00 Test Item Value Reference Range Interpretation Comments UA COLOR (test code = YELLOW YELLOW COLU) UA APPEARANCE (test code CLEAR CLEAR = APPU) UA GLUCOSE DIPSTICK (test NEGATIVE mg/dL NEGATIVE code = DGLUU) UA BILIRUBIN DIPSTICK NEGATIVE mg/dL NEGATIVE (test code = BILU) UA KETONE DIPSTICK (test TRACE mg/dL NEGATIVE A code = KETU) UA SPECIFIC GRAVITY (test 1.027 1.001-1.035 code = SGU) UA BLOOD DIPSTICK (test 1.0 mg/dL (3+) mg/dL NEGATIVE A code = APARNA) UA PH DIPSTICK (test code 6.0 5.0-8.0 = JACKY) UA PROTEIN DIPSTICK (test 70 (1+) mg/dL NEGATIVE A code = PROU) UA UROBILINIOGEN DIPSTICK 3.0 (1+) mg/dL NEGATIVE A (test code = URO) UA NITRITE DIPSTICK (test NEGATIVE NEGATIVE code = RM) UA LEUKOCYTE ESTERASE W NEGATIVE Veronica/uL NEGATIVE REFLEX (test code = LEUUR) UA WBC (test code = WBCU) 6-10 per HPF 0-5 A UA RBC (test code = RBCU) 21-50 #/HPF 0-5 UA EPITHELIAL CELLS (test FEW per HPF FEW code = EPIU) UA BACTERIA (test code = FEW #/HPF NONE A BACU) UA MUCUS (test code = MANY #/LPF FEW A MUCU) Urine Source? Clean CatchURINALYSIS [id number] 22:35:00 Test Item Value Reference Range Interpretation Comments UA COLOR (test code = YELLOW YELLOW COLU) UA APPEARANCE (test code CLEAR CLEAR = APPU) UA GLUCOSE DIPSTICK (test NEGATIVE mg/dL NEGATIVE code = DGLUU) UA BILIRUBIN DIPSTICK NEGATIVE mg/dL NEGATIVE (test code = BILU) UA KETONE DIPSTICK (test TRACE mg/dL NEGATIVE A code = KETU) UA SPECIFIC GRAVITY (test 1.027 1.001-1.035 code = SGU) UA BLOOD DIPSTICK (test 1.0 mg/dL (3+) mg/dL NEGATIVE A code = APARNA) UA PH DIPSTICK (test code 6.0 5.0-8.0 = JACKY) UA PROTEIN DIPSTICK (test 70 (1+) mg/dL NEGATIVE A code = PROU) UA UROBILINIOGEN DIPSTICK 3.0 (1+) mg/dL NEGATIVE A (test code = URO) UA NITRITE DIPSTICK (test NEGATIVE NEGATIVE code = RM) UA LEUKOCYTE ESTERASE W NEGATIVE Veronica/uL NEGATIVE REFLEX (test code = LEUUR) UA WBC (test code = WBCU) per HPF 0-5 UA RBC (test code = RBCU) per HPF 0-5 UA EPITHELIAL CELLS (test per HPF Few code = EPIU) UA BACTERIA (test code = per HPF NONE BACU) Urine Source? Clean CatchBASIC METABOLIC [id number] 22:18:00 Test Item Value Reference Range Interpretation Comments SODIUM (test code = 140 mmol/L 136-145 N NA) POTASSIUM (test code 3.4 mmol/L 3.5-5.1 L = K) CHLORIDE (test code = 105.0 mmol/L 98-107 N CL) CARBON DIOXIDE (test 27.0 mmol/L 21-32 N code = CO2) ANION GAP (test code 11.4 10-20 N = GAP) GLUCOSE (test code = 123 mg/dL 74-106 H GLU) BLOOD UREA NITROGEN 9 mg/dL 7-18 N (test code = BUN) GLOMERULAR FILTRATION > 60 mL/min >=60 Estima ilene GFR by RATE (test code = using Marquise fied MDRD GFR) formula.Chronic kidney disease is defined as [facility] er kidney damageor GFR <60 mL/min/1.73 m2 for >3 months. CREATININE (test code 1.20 mg/dL 0.7-1.3 N = CREAT) BUN/CREATININE RATIO 7.8 10-20 L (test code = BUN/CREA) CALCIUM (test code = 9.0 mg/dL 8.5-10.1 N CA) [id number] 22:18:00 Test Item Value Reference Range Interpretation Comments TROPONIN-I (test code = TROPI) <0.015 ng/mL 0-0.045 N BASIC METABOLIC [id number] 22:09:00 Test Item Value Reference Range Interpretation Comments SODIUM (test code = NA) 140 mmol/L 136-145 N POTASSIUM (test code = K) 3.4 mmol/L 3.5-5.1 L CHLORIDE (test code = CL) 105.0 mmol/L 98-107 N CARBON DIOXIDE (test code = CO2) mmol/L 21-32 ANION GAP (test code = GAP) 10-20 GLUCOSE (test code = GLU) mg/dL 74-106 BLOOD UREA NITROGEN (test code = mg/dL 7-18 BUN) GLOMERULAR FILTRATION RATE (test mL/min >=60 code = GFR) CREATININE (test code = CREAT) mg/dL 0.7-1.3 BUN/CREATININE RATIO (test code 10-20 = BUN/CREA) CALCIUM (test code = CA) 9.0 mg/dL 8.5-10.1 N [id number] 22:09:00 Test Item Value Reference Range Interpretation Comments TROPONIN-I (test code = TROPI) ng/mL 0-0.045 DRUGS OF ABUSE SCREEN [id number] 22:08:00 Test Item Value Reference Range Interpretation Comments UA PH DIPSTICK (test code = JACKY) 6.0 5.0-8.0 URN COCAINE (test code = COCAURN) <300 ng/mL URN CANNABINOIDS (test code = <50 ng/mL CANNABURN) URN AMPHETAMINE (test code = AMPHETURN) <1000 ng/mL URN BARBITURATE (test code = BARBITURN) <200 ng/mL URN BENZODIAZEPINE (test code = <200 ng/mL BENZOURN) URN OPIATES (test code = OPIATURN) <300 ng/mL URN PHENCYCLIDINE (PCP) (test code = <25 ng/mL PHENCURN) URN METHADONE (test code = METHAURN) <300 ng/mL - XR CHEST 1 [id number] 21:59:00 FAX: Silvia Collins NP [place]: St: REG Name: CADEN VAZQUEZ [facility] : 1985 Age/S: 34/M [address] [facility] Unit #: [id number] Loc: [place] [address] Phys: Silvia Collins NP Acct: [id number] DisDate: Status: REG ER PHONE #: [phone] Exam Date: 12/18/20192139 FAX #: [phone] Reason: CHEST PAIN EXAMS: CPT CODE: [id number] XR CHEST 1 V [id number] REASON FOR EXAM: CHEST PAIN Exam Order Date:12/18/2019 9:24 PM Ordering Stephany: Silvia Collins NP PROCEDURE: - XR CHEST 1 V COMPARISON: Chest x-rayJan2019 FINDINGS: Parenchymal scarring in the right lung base is unchanged from the prior exam. Remainder of the lungs are clear. Cardiomediastinal silhouette is normal in size for technique.The mediastinal contours are within normal limits. Hardware in the upper thoracic spine is unchangedfrom the previous exam. The visualized upper abdomen is within normal limits. IMPRESSION: No acute cardiopulmonary process. Location: RR at 2158 Reported and signed by: Tom Oropeza MD CC: Silvia Collins NP Technologist: Gilda Peterson RT(R) Trnscrd Date/Time/By: 12/18/2019 (2158) : By: [email or web address] Orig Print D/T: S: 12/18/2019 (2201) PAGE 1 Signed ReportCBC W/O [id number] 21:58:00 Test Item Value Reference Range Interpretation Comments WHITE BLOOD CELL (test code = 11.6 K/mm3 4.5-12.5 N WBC) RED BLOOD CELL (test code = 4.12 mill/mm3 4.0-5.8 N RBC) HEMOGLOBIN (test code = HGB) 12.1 gram/dL 13.0-17.5 L HEMATOCRIT (test code = HCT) 36.7 % 42.0-52.0 L MEAN CELL VOLUME (test code = 89.1 fL 80-98 N MCV) MEAN CELL HGB (test code = MCH) 29.4 picogram 27.0-33.0 N MEAN CELL HGB CONCETRATION 33.0 gram/dL 33.0-36.0 N (test code = MCHC) RED CELL DISTRIBUTION WIDTH 13.3 % 11.6-16.2 N (test code = RDW) PLATELET COUNT (test code = 335 K/mm3 150-450 N PLT) MEAN PLATELET VOLUME (test code 9.3 fL 6.7-11.0 N = MPV) BASIC METABOLIC [id number] 12:02:00 Test Item Value Reference Range Interpretation Comments SODIUM (test code = 140 mmol/L 136-145 N NA) POTASSIUM (test code 3.4 mmol/L 3.5-5.1 L = K) CHLORIDE (test code = 103.0 mmol/L 98-107 N CL) CARBON DIOXIDE (test 30.0 mmol/L 21-32 N code = CO2) ANION GAP (test code 10.4 10-20 N = GAP) GLUCOSE (test code = 88 mg/dL 74-106 N GLU) BLOOD UREA NITROGEN 16 mg/dL 7-18 N (test code = BUN) GLOMERULAR FILTRATION > 60 mL/min >=60 Estima ilene GFR by RATE (test code = using Marquise fied MDRD GFR) formula.Chronic kidney disease is defined as ei er kidney damageor GFR <60 mL/min/1.73 m2 for >3 months. CREATININE (test code 1.20 mg/dL 0.7-1.3 N = CREAT) BUN/CREATININE RATIO 13.3 10-20 N (test code = BUN/CREA) CALCIUM (test code = 9.1 mg/dL 8.5-10.1 N CA) HEPATIC FUNCTION [id number] 12:02:00 Test Item Value Reference Range Interpretation Comments TOTAL PROTEIN (test 8.2 gram/dL 6.4-8.2 N code = PROT) ALBUMIN (test code = 4.0 g/dL 3.4-5.0 N ALB) GLOBULIN (test code = 4.2 gram/dL 2.7-4.2 N GLOB) ALBUMIN/GLOBULIN RATIO 1.0 0.75-1.50 N (test code = A/G) BILIRUBIN TOTAL (test 0.40 mg/dL 0.0-1.0 N code = BILT) BILIRUBIN DIRECT (test 0.13 mg/dL 0.0-0.20 N code = BILD) SGOT/AST (test code = 21 IUnit/L 15-37 N AST) SGPT/ALT (test code = 17 IUnit/L 12-78 N ALT) ALKALINE PHOSPHATASE 58 IUnit/L 45-117 N Note change in TOTAL (test code = reference range due ALKP) to change in reagent. CREATINE KINASE (CK)2019-07-31 12:02:00 Test Item Value Reference Range Interpretation Comments CREATINE KINASE (CK) (test code = 543 IUnit/L 26-208 H CK) [id number] 12:02:00 Test Item Value Reference Range Interpretation Comments LIPASE (test code = LIP) 206 U/L 73.0-393.0 N [id number] 12:02:00 Test Item Value Reference Range Interpretation Comments MAGNESIUM (test code = MAG) 2.2 mg/dL 1.8-2.4 N [id number] 12:02:00 Test Item Value Reference Range Interpretation Comments TROPONIN-I (test code = TROPI) <0.015 ng/mL 0-0.045 N BASIC METABOLIC [id number] 11:36:00 Test Item Value Reference Range Interpretation Comments SODIUM (test code = NA) 140 mmol/L 136-145 N POTASSIUM (test code = K) 3.4 mmol/L 3.5-5.1 L CHLORIDE (test code = CL) 103.0 mmol/L 98-107 N CARBON DIOXIDE (test code = CO2) mmol/L 21-32 ANION GAP (test code = GAP) 10-20 GLUCOSE (test code = GLU) mg/dL 74-106 BLOOD UREA NITROGEN (test code = mg/dL 7-18 BUN) GLOMERULAR FILTRATION RATE (test mL/min >=60 code = GFR) CREATININE (test code = CREAT) mg/dL 0.7-1.3 BUN/CREATININE RATIO (test code 10-20 = BUN/CREA) CALCIUM (test code = CA) mg/dL 8.5-10.1 HEPATIC FUNCTION [id number] 11:36:00 Test Item Value Reference Range Interpretation Comments TOTAL PROTEIN (test code = PROT) gram/dL 6.4-8.2 ALBUMIN (test code = ALB) g/dL 3.4-5.0 GLOBULIN (test code = GLOB) gram/dL 2.7-4.2 ALBUMIN/GLOBULIN RATIO (test code = 0.75-1.50 A/G) BILIRUBIN TOTAL (test code = BILT) mg/dL 0.0-1.0 BILIRUBIN DIRECT (test code = BILD) mg/dL 0.0-0.20 SGOT/AST (test code = AST) IUnit/L 15-37 SGPT/ALT (test code = ALT) IUnit/L 12-78 ALKALINE PHOSPHATASE TOTAL (test IUnit/L 45-117 code = ALKP) CREATINE KINASE (CK)2019-07-31 11:36:00 Test Item Value Reference Range Interpretation Comments CREATINE KINASE (CK) (test code = IUnit/L 26-208 CK) [id number] 11:36:00 Test Item Value Reference Range Interpretation Comments LIPASE (test code = LIP) U/L 73.0-393.0 [id number] 11:36:00 Test Item Value Reference Range Interpretation Comments MAGNESIUM (test code = MAG) mg/dL 1.8-2.4 [id number] 11:36:00 Test Item Value Reference Range Interpretation Comments TROPONIN-I (test code = TROPI) ng/mL 0-0.045 PROTHROMBIN [id number] 11:35:00 Test Item Value Reference Range Interpretation Comments PROTHROMBIN TIME 12.4 seconds 9.0-14.0 N PATIENT (test code = PTP) INTERNATIONAL NORMAL 1.1 0.8-1.2 N The the rapeutic range RATIO (test code = for oral INR) anticoagulant t herapy formost indicat ions is an internati onal normalized rati o (INR)of between 2.0 and 3.0. The recommended therapeutic INR range for various cli nical situations is l isted below: Clinical Situat ion INR range Pulmonary embol ism treatment (2.0-3.0)Venous thrombosis treatmentVenous thrombosis prophylaxis (hi gh risk surgery)Prevent ion of systemic emboli sm from: Acute myocardial infa rction Valvular heart disease Atrial fibrillation Mechanical pros thetic heart valves (2.5-3.5) IS PATIENT ON ANTICOAGULANTS? NTHROMBOPLASTIN TIME [id number] 11:35:00 Test Item Value Reference Range Interpretation Comments THROMBOPLASTIN TIME PARTIAL 41.4 seconds 25.0-36.5 H (test code = PTT) IS PATIENT ON ANTICOAGULANTS? NURINALYSIS [id number] 11:34:00 Test Item Value Reference Range Interpretation Comments UA COLOR (test code = COLORLESS YELLOW A COLU) UA APPEARANCE (test code CLEAR CLEAR = APPU) UA GLUCOSE DIPSTICK (test NEGATIVE mg/dL NEGATIVE code = DGLUU) UA BILIRUBIN DIPSTICK NEGATIVE mg/dL NEGATIVE (test code = BILU) UA KETONE DIPSTICK (test NEGATIVE mg/dL NEGATIVE code = KETU) UA SPECIFIC GRAVITY (test 1.008 1.001-1.035 code = SGU) UA BLOOD DIPSTICK (test 1.0 mg/dL (3+) mg/dL NEGATIVE A code = APARNA) UA PH DIPSTICK (test code 5.5 5.0-8.0 = JACKY) UA PROTEIN DIPSTICK (test NEGATIVE mg/dL NEGATIVE code = PROU) UA UROBILINIOGEN DIPSTICK Normal mg/dL NEGATIVE (test code = URO) UA NITRITE DIPSTICK (test NEGATIVE NEGATIVE code = RM) UA LEUKOCYTE ESTERASE W NEGATIVE Veronica/uL NEGATIVE REFLEX (test code = LEUUR) UA WBC (test code = WBCU) 0-5 per HPF 0-5 UA RBC (test code = RBCU) 21-50 #/HPF 0-5 UA EPITHELIAL CELLS (test None seen per HPF FEW code = EPIU) UA BACTERIA (test code = FEW #/HPF NONE A BACU) UA MUCUS (test code = FEW #/LPF FEW MUCU) Urine Source? Clean CatchDRUGS OF ABUSE SCREEN [id number] 11:34:00 Test Item Value Reference Range Interpretation Comments URN COCAINE (test POSITIVE <300 ng/mL A This test provides only a code = COCAURN) preliminary test result. A morespecific alternate chemical method must be used in order t oobtain a confirmed yuliana tical result. Gas chromatography/ mass spectrometry (G C/MS) is thepreferred co nfirmatory method. Other c hemical confirmationmet hods are available. Clin ical consideration a nd professional ju dgment should be appli ed to any drug of abusete st result, particularly wh en preliminary pos itive resultsare used.Unconfirme d screening resul ts must not be used fornon-medical purposes (e.g., employme nt testing, legalt esting). URN CANNABINOIDS NEGATIVE <50 ng/mL (test code = CANNABURN) URN AMPHETAMINE (test NEGATIVE <1000 ng/mL code = AMPHETURN) URN BARBITURATE (test NEGATIVE <200 ng/mL code = BARBITURN) URN BENZODIAZEPINE NEGATIVE <200 ng/mL (test code = BENZOURN) URN OPIATES (test NEGATIVE <300 ng/mL code = OPIATURN) URN PHENCYCLIDINE NEGATIVE <25 ng/mL (PCP) (test code = PHENCURN) URN METHADONE (test NEGATIVE <300 ng/mL code = METHAURN) Urine Source? Clean CatchURINALYSIS [id number] 11:30:00 Test Item Value Reference Range Interpretation Comments UA COLOR (test code = COLORLESS YELLOW A COLU) UA APPEARANCE (test code CLEAR CLEAR = APPU) UA GLUCOSE DIPSTICK (test NEGATIVE mg/dL NEGATIVE code = DGLUU) UA BILIRUBIN DIPSTICK NEGATIVE mg/dL NEGATIVE (test code = BILU) UA KETONE DIPSTICK (test NEGATIVE mg/dL NEGATIVE code = KETU) UA SPECIFIC GRAVITY (test 1.008 1.001-1.035 code = SGU) UA BLOOD DIPSTICK (test 1.0 mg/dL (3+) mg/dL NEGATIVE A code = APARNA) UA PH DIPSTICK (test code 5.5 5.0-8.0 = JACKY) UA PROTEIN DIPSTICK (test NEGATIVE mg/dL NEGATIVE code = PROU) UA UROBILINIOGEN DIPSTICK Normal mg/dL NEGATIVE (test code = URO) UA NITRITE DIPSTICK (test NEGATIVE NEGATIVE code = RM) UA LEUKOCYTE ESTERASE W NEGATIVE Veronica/uL NEGATIVE REFLEX (test code = LEUUR) UA WBC (test code = WBCU) per HPF 0-5 UA RBC (test code = RBCU) per HPF 0-5 UA EPITHELIAL CELLS (test per HPF Few code = EPIU) UA BACTERIA (test code = per HPF NONE BACU) Urine Source? Clean CatchDRUGS OF ABUSE SCREEN [id number] 11:30:00 Test Item Value Reference Range Interpretation Comments URN COCAINE (test POSITIVE <300 ng/mL A This test provides only a code = COCAURN) preliminary test result. A morespecific alternate chemical method must be used in order t oobtain a confirmed yuliana tical result. Gas chromatography/ mass spectrometry (G C/MS) is thepreferred co nfirmatory method. Other c hemical confirmationmet hods are available. Clin ical consideration a nd professional ju dgment should be appli ed to any drug of abusete st result, particularly wh en preliminary pos itive resultsare used.Unconfirme d screening resul ts must not be used fornon-medical purposes (e.g., employme nt testing, legalt esting). URN CANNABINOIDS NEGATIVE <50 ng/mL (test code = CANNABURN) URN AMPHETAMINE (test NEGATIVE <1000 ng/mL code = AMPHETURN) URN BARBITURATE (test NEGATIVE <200 ng/mL code = BARBITURN) URN BENZODIAZEPINE NEGATIVE <200 ng/mL (test code = BENZOURN) URN OPIATES (test NEGATIVE <300 ng/mL code = OPIATURN) URN PHENCYCLIDINE NEGATIVE <25 ng/mL (PCP) (test code = PHENCURN) URN METHADONE (test NEGATIVE <300 ng/mL code = METHAURN) Urine Source? Clean CatchCBC W/O [id number] 11:20:00 Test Item Value Reference Range Interpretation Comments WHITE BLOOD CELL (test code = 10.7 K/mm3 4.5-12.5 N WBC) RED BLOOD CELL (test code = 4.18 mill/mm3 4.0-5.8 N RBC) HEMOGLOBIN (test code = HGB) 12.1 gram/dL 13.0-17.5 L HEMATOCRIT (test code = HCT) 37.5 % 42.0-52.0 L MEAN CELL VOLUME (test code = 89.7 fL 80-98 N MCV) MEAN CELL HGB (test code = MCH) 28.9 picogram 27.0-33.0 N MEAN CELL HGB CONCETRATION 32.3 gram/dL 33.0-36.0 L (test code = MCHC) RED CELL DISTRIBUTION WIDTH 13.0 % 11.6-16.2 N (test code = RDW) PLATELET COUNT (test code = 282 K/mm3 150-450 N PLT) MEAN PLATELET VOLUME (test code 8.9 fL 6.7-11.0 N = MPV) URINALYSIS [id number] 11:09:00 Test Item Value Reference Range Interpretation Comments UA COLOR (test code = COLU) YELLOW UA APPEARANCE (test code = APPU) CLEAR UA BILIRUBIN DIPSTICK (test code = NEGATIVE BILU) UA SPECIFIC GRAVITY (test code = 1.001-1.035 SGU) UA PH DIPSTICK (test code = JACKY) 5.0-8.0 UA UROBILINIOGEN DIPSTICK (test code mg/dL 0.0-0.2 = URO) UA NITRITE DIPSTICK (test code = NEGATIVE RM) UA LEUKOCYTE ESTERASE W REFLEX (test NEGATIVE code = LEUUR) UA WBC (test code = WBCU) per HPF 0-5 UA RBC (test code = RBCU) per HPF 0-5 UA EPITHELIAL CELLS (test code = per HPF Few EPIU) UA BACTERIA (test code = BACU) per HPF NONE Urine Source? Clean CatchDRUGS OF ABUSE SCREEN [id number] 11:09:00 Test Item Value Reference Range Interpretation Comments URN COCAINE (test POSITIVE <300 ng/mL A This test provides only a code = COCAURN) preliminary test result. A morespecific alternate chemical method must be used in order t oobtain a confirmed yuliana tical result. Gas chromatography/ mass spectrometry (G C/MS) is thepreferred co nfirmatory method. Other c hemical confirmationmet hods are available. Clin ical consideration a nd professional ju dgment should be appli ed to any drug of abusete st result, particularly wh en preliminary pos itive resultsare used.Unconfirme d screening resul ts must not be used fornon-medical purposes (e.g., employme nt testing, legalt esting). URN CANNABINOIDS NEGATIVE <50 ng/mL (test code = CANNABURN) URN AMPHETAMINE (test NEGATIVE <1000 ng/mL code = AMPHETURN) URN BARBITURATE (test NEGATIVE <200 ng/mL code = BARBITURN) URN BENZODIAZEPINE NEGATIVE <200 ng/mL (test code = BENZOURN) URN OPIATES (test NEGATIVE <300 ng/mL code = OPIATURN) URN PHENCYCLIDINE NEGATIVE <25 ng/mL (PCP) (test code = PHENCURN) URN METHADONE (test NEGATIVE <300 ng/mL code = METHAURN) Urine Source? Clean Catch- XR CHEST 1 [id number] 10:53:00 FAX: Mio Waldrop [phone] [place]: St: REG Name: CADEN VAZQUEZ [facility] : 1985 Age/S: 34/M [address] [facility] Unit #: [id number] Loc: [place] [address] Phys: Mio Waldrop NP Acct: [id number] Dis Date: Status: REG ER PHONE #: [phone] Exam Date: 07/31/2019 1044 FAX #: [phone] Reason: CHEST PAIN EXAMS: CPT CODE: [id number] XR CHEST 1 V [id number] REASON FOR EXAM: CHEST PAIN Exam Order Date: 07/31/2019 10:24 AM Ordering M.Frank: Mio Waldrop NP PROCEDURE: - XR CHEST 1 V COMPARISON: Frontal chest x-ray 2017 FINDINGS: Scarring in the right lung base is grossly unchanged from the previous exam. Remainder of the lungs are clear. Cardiomediastinal silhouette is normal in size for technique. The mediastinal contours are within normal limits. Hardware in the upper thoracic spine is unchanged from the previous exam. Chronic appearing posttraumatic changes are seen in multiple ribs on the right side. The visualized upper abdomen is within normal limits. IMPRESSION: No acute cardiopulmonary process or change from prior exam. Location: [facility] at 1053 Reported and signed by: Tom Oropeza MD CC: Mio Waldrop NP Technologist: NIXON KING(R) Trnscrd Date/Time/By: 07/31/2019 (7684) : By: [email or web address] Orig Print D/T: S: 07/31/2019 (6027) PAGE 1 Signed Report"
--- NOTE | 2022-02-13 12:58 | RAD REPORT ---
EXAM DESCRIPTION: RAD - Ankle Right 3 View - 02/13/2022 12:30 pm CLINICAL HISTORY: Ankle pain, twisting injury COMPARISON: None. FINDINGS: No fracture, dislocation or periosteal reaction. No joint effusion seen. No joint space na rrowing. Lateral soft tissue swelling is present. IMPRESSION: Soft tissue swelling with no right ankle fracture.
--- NOTE | 2022-02-13 13:01 | RAD REPORT ---
EXAM DESCRIPTION: RAD - Ribs Left - 02/13/2022 12:30 pm CLINICAL HISTORY: Blunt force trauma to the ribs, rib pain COMPARISON: None. FINDINGS: Minimally displaced fractures seen along the lateral 8th to 11th ribs. These are linearly arranged, typical for trauma. No pathologic component. No additional acute rib fracture seen. Well-he aled, old posterior left third and fourth rib fractures are seen. Pedicle screws and rods affixed the T2- T7 levels. No pneumothorax or pulmonary contusion seen. No pleural fluid collection. IMPRESSION: Minimally displaced fractures lateral left 8th to 11th ribs. No pneumothorax, pleural fluid collection or pulmonary contusion.
[2022-02-13] MEDS ORDERED: IPRATROPIUM BROM 0.5MG/2.5ML ONE (13:20)
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
[2022-02-13] MEDS ORDERED: KETOROLAC 30 MG/ML INJ ONE (14:03)
[2022-02-13 15:09] VITALS: BP 128/92; TEMP 98.2; O2SAT 100
== END 2022-02-13 14:21 | disposition home or self-care (01) ==
LOC: ER 11:17
DX: S22.42XA Multiple fractures of ribs, left side, initial encounter for closed fracture (principal); S93.402A Sprain of unspecified ligament of left ankle, initial encounter; Z88.5 Allergy status to narcotic agent